=== PATIENT | female | born 1995 | race African-American/Black ===

== ENCOUNTER 2023-02-08 05:59 | Emergency (ER) | payer OTHER ==
--- OUTSIDE RECORDS SUMMARY | 2023-02-08 06:06 | XMS REPORT | Continuity of Care Document ---
:1995 Author Organization [facility] t Address [address] [place] [address] Care Team Providers Name Role Phone SHAWN JIM Patrick Primary Care Physician Unavailable ISA GAINES Attending Clinician Unavailable LEONORA RAE Attending Clinician Unavailable Vidya Burris MD Attending Clinician Leonora Rae MD Attending Clinician Doctor Unassigned, [place] Attending Clinician Unavailable LANE NAVA Attending Clinician Unavailable LANE NAVA Attending Clinician Unavailable Bibi Ramos MA Attending Clinician Unavailable Jose Fernandez CRNA Attending Clinician Derek Dominguez MD Attending Clinician Only, Adc Test Attending Clinician Unavailable 2, Adc Lab Attending Clinician Unavailable Chapis Chung MD Attending Clinician DUC GOLDMAN Attending Clinician Unavailable 1, Pea-m Us Room Attending Clinician Unavailable Duc Goldman MD Attending Clinician [phone] Pob, Adc Lab Main Attending Clinician Unavailable Gin Núñez RN Attending Clinician Unavailable Tyler Wright MD Attending Clinician TYLER WRIGHT Attending Clinician Unavailable SEAMUS GARCES Attending Clinician Unavailable Tyler Wallace MD Attending Clinician DELIA FIELD Attending Clinician Unavailable Carol Aguilar Attending Clinician Unavailable Carol Aguilar Attending Clinician Unavailable LEONORA RAE Admitting Clinician Unavailable TYLER WALLACE Admitting Clinician Unavailable Isa Gaines Admitting Clinician Unavailable Leonora Rae MD Admitting Clinician TYLER WRIGHT Admitting Clinician Unavailable Tyler Wallace MD Admitting Clinician DELIA FIELD Admitting Clinician Unavailable Carol Aguilar Admitting Clinician Unavailable Payers Payer Name Policy Type Policy Number Effective Date Expiration Date S rajwinder [facility] [id number] 2018 00:00:00 [place] [id number] 2022 00:00:00 [facility] [id number] 2018 00:00:00 Problems Condition Condition Condition Status Onset Resolution Last Treating Co mments Source Name Details Category Date Date Treatment Clinician Date Liveborn Liveborn Disease Active Unive rs infant, of infant, of 9-22 it y of bang[place] bangura 00:00: [place] , , 00 Me dical born in born in [facility] by vaginal by vaginal delivery delivery Encounter Encounter Disease Active Uni vers for for 9-22 ity of elective elective 00:00: [place] induction induction 00 [facility] of labor of labor [place] Poor Poor Disease Active Univers weight weight 7-22 ity of gain of gain of 00:00: [place] , , 00 Me dical third third [place] trimester trimester High-risk High-risk Disease Active Uni vers 5-27 ity of in second in second 00:00: [place] trimester trimester 00 [facility] 22 weeks 22 weeks Disease Active Unive rs gestation gestation 5-27 ity of of of 00:00: [place] 00 [facility] History of History of Disease Active U nivers pre-eclamp pre-eclamp 5-27 it y of shannan in shannan in 00:00: [place] prior prior 00 Medical , , Br anch currently currently , , second second trimester trimester Anemia of Anemia of Disease Active Uni vers mother in mother in 5-27 ity of , , 00:00[place] antepartum antepartum 00 Me dical Branch 39 weeks 39 weeks Disease Active Unive rs gestation gestation 5-27 ity of of of 00:00: [place] 00 [facility] Branch Anemia of Anemia of Disease Recurre Un [place]ena mother in mother in nce 5-27 ity of , , [place] delivered 00 [facility] with with Branch condition condition Obesity Obesity Disease Active Univers (BMI (BMI 1-19 ity of 30-39.9) 30-39.9) 00:00: [place] 00 Medical Branch Disease [facility] 00:[facility]: Medical delivered delivered [facility] Cent er Cardiac Cardiac Disease Active [facility] murmur[facility] previously previously 00:00: Me dical undiagnose undiagnose 00 Ce nter d d ASCUS ASCUS Disease Active [facility] (atypical (atypical 12-03 [facility] squamous squamous 00:00: Medica l cells of cells of 00 Center undetermin undetermin ed ed significan significan ce) on Pap ce) on Pap smear smear Allergies, Adverse Reactions, Alerts Allergy Allergy Status Severity Reaction(s) Onset Inactive Treating Comm ents Source Name Type Date Date Clinician No Known Drug Active [facility] NO KNOWN Drug Active [facility] Family History Family Member Diagnosis Comments Start Date Stop Date Source Natural brother Unremarkable [facility] Natural brother Seizures [facility] Natural father Heart attack [facility] Natural mother Unremarkable [facility] Social History Social Habit Start Date Stop Date Quantity Comments Source ASSERTION 2021-06-13 University of 00:00:00 [facility] Gender identity Universit y of [facility] Sexual orientation Univer sity of [facility] History SDOH University o f Alcohol Frequency [facility] History SDOH University o f Alcohol Std Drinks [facility] History SDOH University o f Alcohol Binge [place] [facility] Exposure to 2022-09-29 2022-10-09 Not sure [facility] SARS-CoV-2 (event) 00:00:00 09:48:00 [facility] Tobacco use and 2022-02-08 2022-02-08 Smokeless tobacco Un iversity of exposure 00:00:00 00:00:00 non-user [facility] History of Social 2021-06-27 2021-06-27 Univers ity of function 00:00:00 00:00:00 [facility] Alcohol intake 2019-12-01 2019-12-[address] [facility] 00:00:00 00:00:00 non-drinker of Medical Ce nter alcohol (finding) Alcohol Comment 2018-06-23 2018-06-23 occasional Universit y of 00:00:00 00:00:00 [facility] Sex Assigned At [address] [facility] 00:00:00 00:00:00 [facility] Center Smoking Status Start Date Stop Date Source Never smoked tobacco [facility] Medications Ordered Filled Start Stop Current Ordering Indication Dosage Frequency Signature Comments Components Source Medication Medication Date Date Medication? Clinician (SIG) Name Name metroNIDAZO Yes [id number] 500mg Take 1 Univers LE (FLAGYL) 5-05 tablet by ity of 500 mg 00:00: mouth [place] tablet 00 every 12 Medical (twelve) Branch hours. fluconazole Yes [id number] 150mg Take 1.5 Univers (DIFLUCAN) 5-05 tablets by ity of 100 mg 00:00: mouth in [place] tablet 00 the Medical morning. Branch metroNIDAZO Yes [id number] 500mg Take 1 Univers LE (FLAGYL) 5-05 tablet by ity of 500 mg 00:00: mouth [place] tablet 00 every 12 Medical (twelve) Branch hours. FLUCONAZOLE Yes [id number] 150mg TAKE 1.5 Univers 100 mg 5-05 TABLETS BY ity of tablet 00:00: MOUTH IN [place] 00 THE Medical MORNING Branch metroNIDAZO Yes [id number] 500mg Take 1 Univers LE (FLAGYL) 5-05 tablet by ity of 500 mg 00:00: mouth [place] tablet 00 every 12 Medical (twelve) Branch hours. FLUCONAZOLE 2022-0 Yes [id number] 150mg TAKE 1.5 Univers 100 mg 5-05 TABLETS BY ity of tablet 00:00: MOUTH IN [place] 00 THE Medical MORNING Branch fluconazole 2022-0 2022- No [id number] 150mg Take 1.5 Univers (DIFLUCAN) 5-05 05-05 tablets by it y of 100 mg 00:00: 00:00 mouth in [place] tablet 00 :00 the Medical morning. Branch metroNIDAZO 2022-0 Yes [id number] 500mg Take 1 Univers LE 500 mg 5-03 tablet by ity o f tablet 00:00: mouth [place] 00 every 12 Medical (twelve) Branch hours. metroNIDAZO 2022-0 Yes [id number] 500mg Take 1 Univers LE 500 mg 5-03 tablet by ity o f tablet 00:00: mouth [place] 00 every 12 Medical (twelve) Branch hours. metroNIDAZO 2022-0 Yes [id number] 500mg Take 1 Univers LE 500 mg 5-03 tablet by ity o f tablet 00:00: mouth [place] 00 every 12 Medical (twelve) Branch hours. metroNIDAZO 2022-0 Yes [id number] 500mg Take 1 Univers LE 500 mg 5-03 tablet by ity o f tablet 00:00: mouth [place] 00 every 12 Medical (twelve) Branch hours. metroNIDAZO 2022-0 Yes [id number] 500mg Take 1 Univers LE 500 mg 5-03 tablet by ity o f tablet 00:00: mouth [place] 00 every 12 Medical (twelve) Branch hours. metroNIDAZO 2022-0 Yes [id number] 500mg Take 1 Univers LE 500 mg 5-03 tablet by ity o f tablet 00:00: mouth [place] 00 every 12 Medical (twelve) Branch hours. aspirin 81 2021-06- No 81mg Take 81 mg Univers mg EC 1-11 11-11 by mouth ity of tablet 14:08: 00:00 daily. [place] 51 :00 Medical Branch norgestimat 2021-06 Yes [id number] 1{tbl} Take 1 Univers e-ethinyl 1-11 tablet by ity o f estradioL 00:00: [place] 0.25-35 00 the Medical mg-mcg per morning. Branc h tablet norgestimat 2021-06 Yes [id number] 1{tbl} Take 1 Univers e-ethinyl 1-11 tablet by ity o f estradioL 00:00: [place] 0.25-35 00 the Medical mg-mcg per morning. Branc h tablet norgestimat 2021-06 Yes [id number] 1{tbl} Take 1 Univers e-ethinyl 1-11 tablet by ity o f estradioL 00:00: mouth [place] 0.25-35 00 the Medical mg-mcg per morning. Branc h tablet norgestimat 2021-06 Yes [id number] 1{tbl} Take 1 Univers e-ethinyl 1-11 tablet by ity o f estradioL 00:00: [place] 0.25-35 00 the Medical mg-mcg per morning. Branc h tablet norgestimat 2021-06 Yes [id number] 1{tbl} Take 1 Univers e-ethinyl 1-11 tablet by ity o f estradioL 00:00: [place] 0.25-35 00 the Medical mg-mcg per morning. Branc h tablet norgestimat 2021-06 Yes [id number] 1{tbl} Take 1 Univers e-ethinyl 1-11 tablet by ity o f estradioL 00:00: mouth [place] 0.25-35 00 the Medical mg-mcg per morning. Branc h tablet norgestimat 2021-06 Yes [id number] 1{tbl} Take 1 Univers e-ethinyl 1-11 tablet by ity o f estradioL 00:00: mouth [place] 0.25-35 00 the Medical mg-mcg per morning. Branc h tablet norgestimat 2021-06 Yes [id number] 1{tbl} Take 1 Univers e-ethinyl 1-11 tablet by ity o f estradioL 00:00: mouth [place] 0.25-35 00 the Medical mg-mcg per morning. Branc h tablet norgestimat 2021-06 Yes [id number] 1{tbl} Take 1 Univers e-ethinyl 1-11 tablet by ity o f estradioL 00:00: mouth [place] 0.25-35 00 the Medical mg-mcg per morning. Branc h tablet norgestimat 2021-06 Yes [id number] 1{tbl} Take 1 Univers e-ethinyl 1-11 tablet by ity o f estradioL 00:00: mouth [place] 0.25-35 00 the Medical mg-mcg per morning. Branc h tablet norgestimat 2021-06 Yes [id number] 1{tbl} Take 1 Univers e-ethinyl 1-11 tablet by ity o f estradioL 00:00: mouth [place] 0.25-35 00 the Medical mg-mcg per morning. Branc h tablet norgestimat 2021-06 Yes [id number] 1{tbl} Take 1 Univers e-ethinyl 1-11 tablet by ity o f estradioL 00:00: [place] 0.25-35 00 the Medical mg-mcg per morning. Branc h tablet aspirin 81 Yes 81mg Take 81 mg U nivers mg EC 9-23 by mouth ity of tablet 16:40: daily. [place] [address] Medical Branch Yes [id number] 1{tbl} Take 1 Univers vitamin 9-23 102 tablet by ity of w/FA tablet 00:00: mouth in [place] 00 the Medical morning. Branch docusate Yes [id number] 200mg Take 2 Univers 100 mg 9-23 102 capsules ity of capsule 00:00: by mouth [place] 00 once daily Medical as needed Branch for Constipati on. ferrous Yes [id number] 325mg Take 1 Uni vers sulfate 325 9-23 tablet by ity of mg (65 mg 00:00: [place] iron) 00 the Medical tablet morning Branch and 1 tablet in the evening. ibuprofen Yes [id number] 600mg Take 1 Univers 600 mg 9-23 102 tablet by ity of tablet 00:00: mouth [place] 00 every 6 Medical (six) Branch hours as needed (Pain). Take with food or milk. Yes [id number] 1{tbl} Take 1 Univers vitamin 9-23 102 tablet by ity of w/FA tablet 00:00: mouth in [place] 00 the Medical morning. Branch ibuprofen Yes [id number] 600mg Take 1 Univers 600 mg 9-23 102 tablet by ity of tablet 00:00: mouth [place] 00 every 6 Medical (six) Branch hours as needed (Pain). Take with food or milk. 2021-0 Yes [id number] 1{tbl} Take 1 Univers vitamin 9-23 102 tablet by ity of w/FA tablet 00:00: mouth in [place] 00 the Medical morning. Branch ibuprofen 2021-0 Yes [id number] 600mg Take 1 Univers 600 mg 9-23 102 tablet by ity of tablet 00:00: mouth [place] 00 every 6 Medical (six) Branch hours as needed (Pain). Take with food or milk. 2021-0 Yes [id number] 1{tbl} Take 1 Univers vitamin 9-23 102 tablet by ity of w/FA tablet 00:00: mouth in [place] 00 the Medical morning. Branch ibuprofen 2021-0 Yes [id number] 600mg Take 1 Univers 600 mg 9-23 102 tablet by ity of tablet 00:00: mouth [place] 00 every 6 Medical (six) Branch hours as needed (Pain). Take with food or milk. 2021-0 Yes [id number] 1{tbl} Take 1 Univers vitamin 9-23 102 tablet by ity of w/FA tablet 00:00: mouth in [place] 00 the Medical morning. Branch ibuprofen 2021-0 Yes [id number] 600mg Take 1 Univers 600 mg 9-23 102 tablet by ity of tablet 00:00: mouth [place] 00 every 6 Medical (six) Branch hours as needed (Pain). Take with food or milk. 2021-0 Yes [id number] 1{tbl} Take 1 Univers vitamin 9-23 102 tablet by ity of w/FA tablet 00:00: mouth in [place] 00 the Medical morning. Branch ibuprofen 2021-0 Yes [id number] 600mg Take 1 Univers 600 mg 9-23 102 tablet by ity of tablet 00:00: mouth [place] 00 every 6 Medical (six) Branch hours as needed (Pain). Take with food or milk. 2021-0 Yes [id number] 1{tbl} Take 1 Univers vitamin 9-23 102 tablet by ity of w/FA tablet 00:00: mouth in [place] 00 the Medical morning. Branch ibuprofen 2021-0 Yes [id number] 600mg Take 1 Univers 600 mg 9-23 102 tablet by ity of tablet 00:00: mouth [place] 00 every 6 Medical (six) Branch hours as needed (Pain). Take with food or milk. ibuprofen 2022- No [id number] 600mg Take 1 Univers 600 mg 9- 05-03 102 tablet by ity of tablet 00:00: 00:00 mouth [place] 00 :00 every 6 Medical (six) Branch hours as needed (Pain). Take with food or milk. 2022- No [id number] 1{tbl} Take 1 Univers vitamin 9- 05-03 102 tablet by ity of w/FA tablet 00:00: 00:00 mouth in [place] 00 :00 the Medical morning. Branch ibuprofen 2022- No [id number] 600mg Take 1 Univers 600 mg - 05- 102 tablet by ity of tablet 00:00: 00:00 mouth [place] 00 :00 every 6 Medical (six) Branch hours as needed (Pain). Take with food or milk. 2022- No [id number] 1{tbl} Take 1 Univers vitamin - 05- 102 tablet by ity of w/FA tablet 00:00: 00:00 mouth in [place] 00 :00 the Medical morning. Branch ibuprofen 2022- No [id number] 600mg Take 1 Univers 600 mg - 05- 102 tablet by ity of tablet 00:00: 00:00 mouth [place] 00 :00 every 6 Medical (six) Branch hours as needed (Pain). Take with food or milk. 2022- No [id number] 1{tbl} Take 1 Univers vitamin -29 10- 102 tablet by ity of w/FA tablet 00:00: 00:00 mouth in [place] 00 :00 the Medical morning. Branch docusate 2021- No [id number] 200mg Take 2 Univers 100 mg 03-01- 102 capsules ity of capsule 00:00: 00:00 by mouth [place] 00 :00 once daily Medical as needed Branch for Constipati on. ferrous 2021- No [id number] 325mg Take 1 Un celena sulfate 325 03-01-11 tablet by it y of mg (65 mg 00:00: 00:00 mouth in [place] iron) 00 :00 the Medical tablet morning Branch and 1 tablet in the evening. HYDROcodone 202-0 Yes 1{tbl} 1 tablet, Univers -acetaminop 02-28 Oral, ity of hen (NORCO 18:32: Q6HPRN, [place] 5) 5-325 mg 49 Starting Medi aneudy tablet 1 on [facility] Branch tablet 02/28/22 at 1332, Until Discontinu ed, Routine, Pain (scale 7-10) ibuprofen 202-0 Yes 600mg 600 mg, Univ ers (IBU) 02-28 Oral, ity of tablet 600 18:32: Q6HPRN, [place] mg 49 Starting Medical on [place] Branch 02/28/22 at 1332, Until Discontinu ed, Routine, Pain (scale 4-6) acetaminoph 2021-0 Yes 650mg 650 mg, Un celena en 02-28 Oral, ity of (TYLENOL) 18:32: Q6HPRN, [place] tablet 650 49 Starting Medic al mg on [facility] Branch 02/28/22 at 1332, Until Discontinu ed, Routine, Pain (scale 1-3) diphenhydrA 2021-0 Yes 25mg 25 mg, Univ ers MINE 02-28 Oral, ity of (BENADRYL) 18:32: Q6HPRN, [place] tablet 25 49 Starting Medica l mg on [facility] Branch 02/28/22 at 1332, Until Discontinu ed, Routine, Sleep, Itching ondansetron 2021-0 Yes 4mg 4 mg, Slow Univers (ZOFRAN 02-28 IV Push, ity of (PF)) 18:32: Q8HPRN, [place] injection 4 49 Starting Medi aneudy mg on [facility] Branch 02/28/22 at 1332, Until Discontinu ed, Routine, Nausea and Vomiting (N/V) simethicone 2022-0 Yes 160mg 160 mg, Un [place]ena (GAS RELIEF 02-28 Oral, ity of (SIMETHICON 18:32: PC+HSPRN, [place] E)) 49 Starting Medical chewable on [facility] Branch tablet 160 02/28/22 at mg 1332, Until Discontinu ed, Routine, Gas docusate 2021-0 Yes 200mg 200 mg, Unive rs (COLACE) 02-28 Oral, ity of capsule 200 18:32: QDAILYPRN, [place] mg 49 Starting Medical on [place] Branch 02/28/22 at 1332, Until Discontinu ed, Routine, Constipati on magnesium Yes 30mL 30 mL, Univer s hydroxide 02-28 Oral, ity of (MILK OF 18:32: QDAILYPRN, [place] as MAGNESIA) 49 Starting Medica l 400 mg/5 mL on [place] Branch suspension 02/28/22 at 30 mL 1332, Until Discontinu ed, Routine, Constipati on benzocaine- Yes Topical, Un cel[place] menthol 02-28 PRN, ity of (DERMOPLAST 18:32: Starting [place] ) 20-0.5 % 49 on [place] Medical topical 02/28/22 at Branch spray 1332, Until Discontinu ed, Routine, Perineum discomfort PIB 2021- No Epidural, Univers fentaNYL-ro 02-28 CONTINUOUS i ty of pivacaine 2 14:27: 19:54 PRN, [place] mcg/mL-0.1 00 :19 Starting Medic al % (PF) in on [place] Branch NS 200 mL 02/28/22 at epidural 0927, infusion Until [place] RTU 02/28/22 at 1454, Routine, Intra-op lidocaine-e 2021- No Epidural, Univers pinephrine 02-28 ONCE INTRA it y of (XYLOCAINE 14:22: 19:54 PROCEDURE, [place] W/EPINEPHRI 00 :19 Starting Medi aneudy NE) 1.5 on [place] Branch %-1:200,000 02/28/22 at injection 0922, Until [place] 02/28/22 at 1454, Routine, Intra-op lidocaine 2021- No Infiltrati U nivers 1% 02-28 on, ONCE ity of (XYLOCAINE) 14:06: 19:54 INTRA [place] 100 mg/10 00 :19 PROCEDURE, Medi aneudy mL (1 %) Starting Branch injection on [place] 02/28/22 at 0906, Until [place] 02/28/22 at 1454, Routine, Intra-op oxytocin 2021- No 2mU/min at 2-40 Un celena (PITOCIN) 02-28 mL/hr, IV ity of 30 units in 08:48: 18:33 Infusion, [place] NS 500 mL 26 :54 TITRATE, Medica l IV infusion Starting Bran ch on [place] 02/28/22 at 0348, Until [place] 02/28/22 at 1333, ROBERT sodium 2021- No 30mL 30 mL, Univers citrate-cit 02-28 Oral, ity of alfred acid 08:48: 12:19 PRE-PROCED [place] (BICITRA) 26 :00 URE ONCE, Medic al 500-334 1 dose, Branch mg/5 mL Starting solution 30 on [place] mL 02/28/22 at 0348, Until Discontinu ed, Routine, Surgery/Pr ocedure lactated 2021- No 500mL at 999 Unive rs ringers IV 02-28 mL/hr, 500 it y of infusion 08:48: 18:33 mL, IV [place] 500 mL 26 :54 Infusion, Medical PRN - SEE Branch INSTRUCTIO NS, Starting on [place] 02/28/22 at 0348, Until [place] 02/28/22 at 1333, Routine D5W-LR IV 2021- No 1000mL at 1-125 U nivers infusion 02-28 mL/hr, IV ity o f 1,000 mL 08:48: 18:33 Infusion, [place] as 26 :54 TITRATE, Medical Starting Branch on [place] 02/28/22 at 0348, Until [place] 02/28/22 at 1333, Routine aspirin 81 2021-0 Yes 81mg Take 81 mg U nivers mg EC -22 by mouth ity of tablet 03:46: daily. [address] aspirin 81 2021-0 Yes 81mg Take 81 mg U nivers mg EC 9-16 by mouth ity of tablet 14:00: daily. [address] aspirin 81 2021-0 Yes 81mg Take 81 mg U nivers mg EC 9-16 by mouth ity of tablet 14:00: daily. [address] aspirin 81 2021-0 Yes 81mg Take 81 mg U nivers mg EC 9-16 by mouth ity of tablet 14:00: daily. [address] aspirin 81 2021-0 Yes 81mg Take 81 mg U nivers mg EC 9-16 by mouth ity of tablet 14:00: daily. [place] 53 Medical Branch butalbital- Yes [id number] 1{tbl} Take 1 Univers acetaminoph 3-16 tablet by ity of en-caff 00:00: mouth [place] 50-325-40 00 every 4 Medical mg tablet (four) Branch hours as needed (Headaches ). butalbital- Yes [id number] 1{tbl} Take 1 Univers acetaminoph 3-16 tablet by ity of en-caff 00:00: mouth [place] 50-325-40 00 every 4 Medical mg tablet (four) Branch hours as needed (Headaches ). butalbital- Yes [id number] 1{tbl} Take 1 Univers acetaminoph 3-16 tablet by ity of en-caff 00:00: mouth [place] 50-325-40 00 every 4 Medical mg tablet (four) Branch hours as needed (Headaches ). butalbital- Yes [id number] 1{tbl} Take 1 Univers acetaminoph 3-16 tablet by ity of en-caff 00:00: mouth [place] 50-325-40 00 every 4 Medical mg tablet (four) Branch hours as needed (Headaches ). butalbital- Yes [id number] 1{tbl} Take 1 Univers acetaminoph 3-16 tablet by ity of en-caff 00:00: mouth [place] 50-325-40 00 every 4 Medical mg tablet (four) Branch hours as needed (Headaches ). butalbital- 2021- No [id number] 1{tbl} Take 1 Univers acetaminoph 3-16 09-23 tablet by it y of en-caff 00:00: 00:00 mouth [place] 50-325-40 00 :00 every 4 Medical mg tablet (four) Branch hours as needed (Headaches ). ferrous Yes [id number] 325mg Take 1 Un [place] sulfate 325 2-16 tablet by ity of mg (65 mg 00:00: mouth 2 [place] iron) 00 (two) Medical tablet times Branch daily. ascorbic Yes [id number] 500mg Take 1 U nivers acid, 2-16 tablet by ity of vitamin C, 00:00: mouth 2 [place] 500 mg 00 (two) Medical tablet times Branch daily. Take with iron supplement s ferrous Yes [id number] 325mg Take 1 Un [place] sulfate 325 2-16 tablet by ity of mg (65 mg 00:00: mouth 2 [place] iron) 00 (two) Medical tablet times Branch daily. ascorbic Yes [id number] 500mg Take 1 U nivers acid, 2-16 tablet by ity of vitamin C, 00:00: mouth 2 [place] 500 mg 00 (two) Medical tablet times Branch daily. Take with iron supplement s ferrous Yes [id number] 325mg Take 1 Un [place] sulfate 325 2-16 tablet by ity of mg (65 mg 00:00: mouth 2 [place] iron) 00 (two) Medical tablet times Branch daily. ascorbic Yes [id number] 500mg Take 1 U nivers acid, 2-16 tablet by ity of vitamin C, 00:00: mouth 2 [place] 500 mg 00 (two) Medical tablet times Branch daily. Take with iron supplement s ferrous Yes [id number] 325mg Take 1 Un [place] sulfate 325 2-16 tablet by ity of mg (65 mg 00:00: mouth 2 [place] iron) 00 (two) Medical tablet times Branch daily. ascorbic Yes [id number] 500mg Take 1 U nivers acid, 2-16 tablet by ity of vitamin C, 00:00: mouth 2 [place] 500 mg 00 (two) Medical tablet times Branch daily. Take with iron supplement s ferrous Yes [id number] 325mg Take 1 Un [place] sulfate 325 2-16 tablet by ity of mg (65 mg 00:00: mouth 2 [place] iron) 00 (two) Medical tablet times Branch daily. ascorbic Yes [id number] 500mg Take 1 U nivers acid, 2-16 tablet by ity of vitamin C, 00:00: mouth 2 [place] 500 mg 00 (two) Medical tablet times Branch daily. Take with iron supplement s ascorbic Yes [id number] 500mg Take 1 U nivers acid, 2-16 tablet by ity of vitamin C, 00:00: mouth 2 [place] 500 mg 00 (two) Medical tablet times Branch daily. Take with iron supplement s ascorbic 2022- No [id number] 500mg Take 1 Univers acid, 2-16 11-11 tablet by ity of vitamin C, 00:00: 00:00 mouth 2 [place] 500 mg 00 :00 (two) Medical tablet times Branch daily. Take with iron supplement s ferrous 2021- No [id number] 325mg Take 1 U nivers sulfate 325 07-25 tablet by it y of mg (65 mg 00:00: 00:00 mouth 2 [place] iron) 00 :00 (two) Medical tablet times Branch daily. Yes 1{tbl} Take 1 Unive rs no.75-iron- 1-19 tablet by ity of folate no1 00:00: mouth [place] 18 mg iron- 00 daily. Medica l 1 mg Tab Branch Yes 1{tbl} Take 1 Unive rs no.75-iron- 1-19 tablet by ity of folate no1 00:00: mouth [place] 18 mg iron- 00 daily. Medica l 1 mg Tab Branch Yes 1{tbl} Take 1 Unive rs no.75-iron- 1-19 tablet by ity of folate no1 00:00: mouth [place] 18 mg iron- 00 daily. Medica l 1 mg Tab Branch Yes 1{tbl} Take 1 Unive rs no.75-iron- 1-19 tablet by ity of folate no1 00:00: mouth [place] 18 mg iron- 00 daily. Medica l 1 mg Tab Branch Yes 1{tbl} Take 1 Unive rs no.75-iron- 1-19 tablet by ity of folate no1 00:00: mouth [place] 18 mg iron- 00 daily. Medica l 1 mg Tab Branch 2021- No 1{tbl} Take 1 Univ ers no.75-iron- 1-19 03-01 tablet by it y of folate no1 00:00: 00:00 mouth [place] 18 mg iron- 00 :00 daily. Medica l 1 mg Tab Branch 2018-06 Yes 1{tbl} QD Take 1 [facility] vitamin [facility]-28 tablet by [place] w/calcium-i 13:46: mouth Medic al domitila-folate 25 daily. Center ( PLUS) 27 mg iron- 1 mg Tab Immunizations Ordered Immunization Filled Immunization Date Status Commen ts Source Name Name Meningococcal 2013-12-03 Completed [facility] Polysaccharide 00:00:00 [place] [facility] (groups A, C, Y and Branc h W-135) conjugate vaccine (MCV4P) Meningococcal 2013-12-03 Completed [facility] Polysaccharide 00:00:00 [place] [facility] (groups A, C, Y and Branc h W-135) conjugate vaccine (MCV4P) Meningococcal 2013-12-03 Completed [facility] Polysaccharide 00:00:00 [place] [facility] (groups A, C, Y and Branc h W-135) conjugate vaccine (MCV4P) Meningococcal 2013-12-03 Completed [facility] Polysaccharide 00:00:00 [place] [facility] (groups A, C, Y and Branc h W-135) conjugate vaccine (MCV4P) Meningococcal 2013-12-03 Completed [facility] Polysaccharide 00:00:00 [place] [facility] (groups A, C, Y and Branc h W-135) conjugate vaccine (MCV4P) Meningococcal 2013-12-03 Completed [facility] Polysaccharide 00:00:00 [place] [facility] (groups A, C, Y and Branc h W-135) conjugate vaccine (MCV4P) Meningococcal 2013-12-03 Completed [facility] Polysaccharide 00:00:00 [place] [facility] (groups A, C, Y and Branc h W-135) conjugate vaccine (MCV4P) Meningococcal 2013-12-03 Completed [facility] Polysaccharide 00:00:00 [place] [facility] (groups A, C, Y and Branc h W-135) conjugate vaccine (MCV4P) Meningococcal 2013-12-03 Completed [facility] Polysaccharide 00:00:00 [place] [facility] (groups A, C, Y and Branc h W-135) conjugate vaccine (MCV4P) Meningococcal 2013-12-03 Completed [facility] Polysaccharide 00:00:00 [place] [facility] (groups A, C, Y and Branc h W-135) conjugate vaccine (MCV4P) Meningococcal 2013-12-03 Completed [facility] Polysaccharide 00:00:00 [place] [facility] (groups A, C, Y and Branc h W-135) conjugate vaccine (MCV4P) Meningococcal 2013-12-03 Completed [facility] Polysaccharide 00:00:00 [place] [facility] (groups A, C, Y and Branc h W-135) conjugate vaccine (MCV4P) Meningococcal 2013-12-03 Completed [facility] Polysaccharide 00:00:00 [place] [facility] (groups A, C, Y and Branc h W-135) conjugate vaccine (MCV4P) Meningococcal 2013-12-03 Completed [facility] Polysaccharide 00:00:00 [place] [facility] (groups A, C, Y and Branc h W-135) conjugate vaccine (MCV4P) Meningococcal 2013-12-03 Completed [facility] Polysaccharide 00:00:00 [place] [facility] (groups A, C, Y and Branc h W-135) conjugate vaccine (MCV4P) Meningococcal 2013-12-03 Completed [facility] Polysaccharide 00:00:00 [place] [facility] (groups A, C, Y and Branc h W-135) conjugate vaccine (MCV4P) Meningococcal 2013-12-03 Completed [facility] Polysaccharide 00:00:00 [place] [facility] (groups A, C, Y and Branc h W-135) conjugate vaccine (MCV4P) Meningococcal 2013-12-03 Completed [facility] Polysaccharide 00:00:00 [place] [facility] (groups A, C, Y and Branc h W-135) conjugate vaccine (MCV4P) Meningococcal 2013-12-[address] [facility] Conjugate 00:00:00 [facility] Vital Signs Vital Name Observation Time Observation Value Comments Source Weight Dosing 2019-08-23 14:10:57 Height/Length 2019-08-23 14:10:57 Measured Weight Dosing 2019-08-23 13:10:45 Height/Length Dosing 2019-08-23 13:10:45 Height/Length 2021-06-26 09:38:19 170.18 cm Measured Height/Length Dosing 2021-06-26 09:38:19 170.18 cm Weight Dosing 2021-06-26 09:38:19 108.86 kg Height/Length 2021-06-26 09:37:14 170.18 cm Measured Height/Length Dosing 2021-06-26 09:37:14 170.18 cm Weight Dosing 2021-06-26 09:37:14 108.86 kg Height/Length 2021-06-26 09:36:06 170.18 cm Measured Height/Length Dosing 2021-06-26 09:36:06 170.18 cm Weight Dosing 2021-06-26 09:36:06 108.86 kg Height/Length 2021-06-26 09:36:03 170.18 cm Measured Height/Length Dosing 2021-06-26 09:36:03 170.18 cm Weight Dosing 2021-06-26 09:36:03 108.86 kg Height/Length 2021-06-26 09:36:02 170.18 cm Measured Height/Length Dosing 2021-06-26 09:36:02 170.18 cm Weight Dosing 2021-06-26 09:36:02 108.86 kg Height/Length 2021-06-26 09:35:53 170.18 cm Measured Height/Length Dosing 2021-06-26 09:35:53 170.18 cm Weight Dosing 2021-06-26 09:35:53 108.86 kg Height/Length 2021-06-26 09:35:50 170.18 cm Measured Height/Length Dosing 2021-06-26 09:35:50 170.18 cm Weight Dosing 2021-06-26 09:35:50 108.86 kg Height/Length 2021-06-26 09:35:39 170.18 cm Measured Height/Length Dosing 2021-06-26 09:35:39 170.18 cm Weight Dosing 2021-06-26 09:35:39 108.86 kg Height/Length 2021-06-26 09:35:37 170.18 cm Measured Height/Length Dosing 2021-06-26 09:35:37 170.18 cm Weight Dosing 2021-06-26 09:35:37 108.86 kg Systolic blood 2022-10-09 15:34:00 130 mm[Hg] Univer sity [facility] Diastolic blood 2022-10-09 15:34:00 83 mm[Hg] [facility] 2022-10-09 15:34:00 80 /min [facility] Body temperature 2022-10-09 15:34:00 36.72 Anjelica [facility] Res[facility] rate 2022-10-09 15:34:00 17 /min [facility] Body height 2022-10-09 15:34:00 170.2 cm [facility] Body weight 2022-10-09 15:34:00 96.435 kg [facility] BMI 2022-10-09 15:34:00 33.30 kg/m2 [facility] Systolic blood 2022-04-19 17:41:00 112 mm[Hg] Univer sity of pressure [facility] Diastolic blood 2022-04-19 17:41:00 66 mm[Hg] Unive rsity of pressure [facility] Heart rate 2022-04-19 17:41:00 61 /min [facility] [place] [facility] [place] Body temperature 2022-04-19 17:41:00 37.06 Anjelica Univ ersity of [facility] Body height 2022-04-19 17:41:00 170.2 cm Universi ty of [facility] Body weight 2022-04-19 17:41:00 89.359 kg Universi ty of [facility] BMI 2022-04-19 17:41:00 30.85 kg/m2 Universi ty of [facility] Respiratory rate 2022-03-01 17:46:00 18 /min Univ ersity of [facility] Systolic blood 2022-03-01 17:46:00 134 mm[Hg] Univer sity of pressure [facility] Diastolic blood 2022-03-01 17:46:00 76 mm[Hg] Unive rsity of pressure [facility] Heart rate 2022-03-01 17:46:00 62 /min [facility]i [facility] [place] Body temperature 2022-03-01 17:46:00 36.11 Anjelica [facility] ersity of [facility] Oxygen saturation in 2022-03-01 05:04:00 99 /min University of Arterial blood by [facility] Pulse oximetry Branch Body height 2022-02-28 08:50:00 170.2 cm 5' 7" Universi ty of [facility] Body weight 2022-02-28 08:50:00 99.066 kg Universi ty of [facility] BMI 2022-02-28 08:50:00 34.20 kg/m2 [facility]i [facility] Systolic blood 2022-02-22 15:37:00 129 mm[Hg] Univer sity of pressure [facility] Diastolic blood 2022-02-22 15:37:00 76 mm[Hg] Unive rsity of pressure [facility] Heart rate 2022-02-22 15:37:00 81 /min [facility]i [facility] Body temperature 2022-02-22 15:37:00 36.61 Anjelica Univ ersity of [facility] Respiratory rate 2022-02-22 15:37:00 18 /min [facility] Body height 2022-02-22 15:37:00 170.2 cm [facility] Body weight 2022-02-22 15:37:00 98.793 kg [facility] BMI 2022-02-22 15:37:00 34.11 kg/m2 [facility] Weight Dosing 2019-08-20 21:36:52 Height/Length 2019-08-20 21:36:52 Measured Height/Length 2021-06-26 09:33:38 170.18 cm Measured Weight Dosing 2021-06-26 09:33:38 104.32 kg Height/Length 2021-06-26 09:29:30 170.18 cm Measured Weight Dosing 2021-06-26 09:29:30 103.87 kg Weight Dosing 2019-08-17 10:44:02 Height/Length 2019-08-17 10:44:02 Measured Procedures Procedure Date / Time Performed Performing Clinician [facility] ASSIGNMENT OF BENEFITS 2022-10-09 14:50:12 Doctor Unassigned, No [facility] Name [facility] POCT URINALYSIS W/O 2022-10-09 00:00:00 Adum, Leonora Larsen [facility] SPECIFIC GRAVITY [facility] POCT TEST 2022-04-19 00:00:00 Adum, Leonora Larsen [facility] CBC WITH DIFF 2022-03-01 09:29:00 Adum, Leonora [facility]en [facility] CENTRAL NEURAXIAL 2022-02-28 14:42:27 Jose Fernandez [facility] BLOCK [facility] CBC WITH DIFF 2022-02-28 09:25:00 Adum, Leonora Larsen [facility] HEPATITIS B SURFACE 2022-02-28 09:25:00 Adum, Leonora Larsen [facility] ANTIGEN [facility] ADC OR SABINA ONLY - 2022-02-28 09:25:00 Adum, Leon[facility] RPR [facility] HIV 1/2 AG-AB WITH 2022-02-28 09:25:00 Adum, Leonora Larsen [facility] REFLEX [facility] HB ABO GROUPING 2022-02-28 09:20:00 Adum, Leonora Larsen [facility] ASSIGNMENT OF BENEFITS 2022-02-28 08:45:12 Doctor Unassigned, No [facility] ASSIGNMENT OF BENEFITS 2022-02-25 14:25:10 Doctor Unassigned, No [facility] POCT URINALYSIS W/O 2022-02-22 00:00:00 Adum, Lenoora Larsen [facility] SPECIFIC [facility] Encounters Start End Encounter Admission Attending Care Care Encounter Source Date/Time Date/Time Type Type Clinicians Facility Department ID 2022-02-25 Outpatient P [facility] [id number] Univers 09:29:24 ity [facility] 2022-01-28 Outpatient P [facility] [id number] [facility] 2021-04-05 [facility] P [facility] [id number] Univers 14:27:03 [facility] 2021-04-05 Outpatient P [facility] [id number] Univers 14:26:22 [facility] 2021-01-15 [facility] [id number] [place] 09:29:47 [facility] 2019-08-23 Inpatient [address] [facility] OBA [id number] [address] 12:58:00 [facility]20190823 [facility] 2019-08-23 Inpatient [address] [facility] OBA [id number] [address] 12:07:00 [facility] 2023-02-08 2023-02-08 Outpatient R [facility] [id number] Univers 10:40:00 10:40:00 [facility]23 2023 Refill [facility] 1.2.840.114 [id number] Univers 00:00:00 00:00:00 Vidya albright 350.1.13.10 ity [facility] 4.2.7.2.686 Devaughn albright PROFHIENIO [id number] [address] 2022-10-11 2022-10-11 Telephone [facility] 1.2.840.114 [id number] Univers 00:00:00 00:00:00 s, Vidya [place] 350.1.13.10 ity of [facility] [place] [id number] [address] 2022-10-11 2022-10-11 Refill Luis Armando [facility] 1.2.840.114 [id number] Univers 00:00:00 00:00:00 s, Vidya [place] 350.1.13.10 [place] of [place] [id number] [address] 2022-10-09 2022-10-09 [facility] [id number] Univers 10:15:00 11:01:56 LEONORA hess of [facility] 2022-10-09 2022-10-09 [facility] [id number] [facility] 10:15:00 11:01:56 Visit Leonora MAGANA 350.1.13.10 i ty of [place] [id number] [address] 2022-10-09 2022-10-09 Orders Doctor PORTER 1.2.840.114 [id number] Univers 00:00:00 00:00:00 Only Unassigned, JULIANA 350.1.13.10 ity of [place] [facility] 4.2.7.2.686 Emeterio as [id number] [address] 2022-09-30 2022-09-30 [facility] [id number] [id number] Univers 00:00:00 00:00:00 Leonora SALINAS 350.1.13.10 it[place] of [place] [id number] [address] 2022-09-30 2022-09-30 Telephone [facility] 1.2.613.802 [id number] Univers 00:00:00 00:00:00 Leonora L [place] 350.1.13.10 ity of [facility] 4.2.7.2.[place] [id number] [place] dical NAL [address] [place] [address] 2022-08-22 2022-08-[address] [facility] B [id number] Univers 09:00:00 09:00:00 [address] ity [facility] 2022-08-13 2022-08-13 Telephone Ad, [facility] [id number] [id number] Univers 00:00:00 00:00:00 Leonora SALINAS 350.1.13.10 ity of [facility] 4.2.7.2.[place] [id number] [place] dical NAL [address] [place] [address] 2022-07-23 2022-07-23 VANNESA [place] 1.2.840.114 [id number] Univers 00:00:00 00:00:00 Management Bibi THOMAS 350.1.13.10 ity of [place].7.2.[place] [id number] [address] 2022-04-19 2022-04-19 Outpatient R ADUM, [facility] [id number] Univers 11:15:00 12:13:48 LEONORA itbeth [facility] 2022-04-19 2022-04-19 Routine Adum, [facility] 1.2.840.114 [id number] Univers 11:15:00 12:13:48 Leonora SALINAS 350.1.13.10 ity of [place] 4.2.7.2.[place] [id number] [place] dical NAL [address] [place] [address] 2022-03-29 2022-03-29 Outpatient R ADUM, [facility] [id number] Univers 15:15:00 15:15:00 LEONORA hess [facility] 2022-03-29 2022-03-29 Outpatient R ADUM, [facility] [id number] Univers 09:45:00 09:45:00 LEONORA hess [facility] 2022-02-28 2022-03-01 Inpatient P ADUM, [facility] [id number] Univers 03:45:00 16:05:00 LEONORA ity [facility] 2022-02-28 2022-03-01 Hospital Butch, [facility] 1.2.840.114 [id number] Univers 03:45:00 16:05:00 Encounter Leonora SALINAS 350.1.13.10 ity of [facility] 4.2.7.2.686 [facility] [id number] [facility] 083 Branch 2022-02-28 2022-02-28 Anesthesia ElijahJose bui [facility] 1.2.8 40.114 [id number] Univers 09:05:00 14:54:00 Event DominguezDerek albright 350.1.13. 10 ity of [facility] 4.2.7.2.686 [facility] [id number] [facility] 083 Branch 2022-02-28 2022-02-28 Orders Doctor PORTER 1.2.840.114 [id number] Univers 00:00:00 00:00:00 Only Unassigned, JULIANA 350.1.13.10 ity of [place] [facility] 4.2.7.2.686 Emeterio [id number] [facility] 009 Branch 2022-02-26 2022-02-26 Outpatient R [facility] [id number] Univers 08:45:00 08:45:00 ity of [facility] 2022-02-25 2022-02-25 Laboratory Only, Adc Test [facility] 1.2.840. 114 [id number] Univers 13:45:00 14:00:00 Only Leonora Rae Chava SALINAS 350.1.13.10 ity of [facility] 4.2.7.2.686 [facility] [id number] [facility] 353 Branch 2022-02-25 2022-02-25 Outpatient R BUTCH, [facility] [id number] Univers 13:45:00 13:45:00 LEONORA ity [facility] 2022-02-25 2022-02-25 Orders Doctor BUENROSTRO 1.2.840.114 [id number] Univers 00:00:00 00:00:00 Only Unassigned, JULIANA 350.1.13.10 ity of [place] [facility] 4.2.7.2.686 Emeterio as [id number] [address] 2022-02-22 2022-02-22 Outpatient R ADUM, [facility] [id number] Univers 10:30:00 11:24:28 LEONORA ity of [facility] 2022-02-22 2022-02-22 Routine Adum, [facility] 1.2.840.114 [id number] Univers 10:30:00 11:24:28 Leonora L [place] 350.1.13.10 ity of [place] 4.2.[place].2.[place] [id number] [place] d[place] [address] 2022-02-15 2022-02-15 Outpatient R ADUM, [facility] [id number] Univers 16:15:00 16:15:27 LEONORA ity [facility] 2022-02-15 2022-02-15 Routine Ad, [facility] 1.2.840.114 [id number] Univers 16:15:00 16:15:27 Leonora L [place] 350.1.13.10 ity of [place] 4.2.7.2.[place] [id number] [place] dic[address] 2022-02-08 2022-02-08 Outpatient R ADUM, [facility] [id number] Univers 15:45:00 16:04:43 LEONORA ity [facility] 2022-02-08 2022-02-08 Routine Ad, [facility] 1.2.840.114 [id number] Univers 15:45:00 16:04:43 Leonora L [place] 350.1.13.10 ity of [place] 4.2.7.2.[place] [id number] [place] dical [address] 2022-02-08 2022-02-08 Crew Dispatcher 2, Adc Lab [facility] 1.2.840.114 [id number] Univers 15:15:00 15:30:00 Visit Adum, Leonora L [place] 350.1.13.10 ity of [place] 4.2.7.2.686 [place] [id number] [place] dical NAL [address] [facility] 2022-02-06 2022-02-06 Telephone Adum, [facility] 1.2.949.494 [id number] Univers 00:00:00 00:00:00 Leonora Chava CAMEJOTON 350.1.13.10 ity of [place] 4.2.7.2.686 [place] [id number] [place] dical NAL 134 [facility] 2022-02-01 2022-02-01 Outpatient R AD, [facility] [id number] Univers 16:00:00 16:47:23 LEONORA ity [facility] 2022-02-01 2022-02-01 [facility]ine [facility] 1.2.840.114 [id number] Univers 16:00:00 16:47:23 Leonoradax SALINAS 350.1.13.10 ity of [place] 4.2.7.2.686 [place] [phone] [place] dical NAL [address] [facility] 2022-02-01 2022-02-01 Orders Doctor PORTER 1.2.840.114 [id number] Univers 00:00:00 00:00:00 Only Unassigned, JULIANA 350.1.13.10 ity of [place] [facility] 4.2.7.2.686 Emeterio as [id number] [facility] [address] [place] 2022-01-28 2022-01-28 Outpatient P AD, [facility] [id number] Univers 16:35:00 19:00:00 LEONORA ity [facility] 2022-01-28 2022-01-28 Hospital Ad, [facility] 1.2.840.114 [id number] Univers 16:35:00 19:00:00 Encounter Leonora CAMEJOTON 350.1.13.10 it[place] of [place].2.7.2.[place] [id number] [facility] [address] [place] 2022-01-28 2022-01-28 Telephone Chapis Chung [facility] 1.2.840.114 [id number] Univers 00:00:00 00:00:00 Cam RITA 350.1.13.10 i ty of [place] 4.2.7.2.[place] [id number] [place] dical [address] 2022-01-11 2022-01-11 Outpatient R ADUM, [facility] [id number] Univers 13:00:00 13:00:00 LEONORA ity [facility] 2021-12-28 2021-12-28 Outpatient R ADUM, [facility] [id number] Univers 11:00:00 11:56:18 LEONORA ity [facility] 2021-12-28 2021-12-28 Routine Adum, [facility] 1.2.840.114 [id number] Univers 11:00:00 11:56:18 Leonora L [place] 350.1.13.10 ity of [place] 4.2.7.2.[place] [id number] [place] dical NAL [address] [place] [address] 2021-12-06 2021-12-06 Telephone Adum, [facility] 1.2.505.015 [id number] Univers 00:00:00 00:00:00 Leonora L [place] 350.1.13.10 ity of [place] 4[place].2.[place] [id number] [address] 2021-12-06 2021-12-06 Orders Doctor PORTER 1.2.840.114 [id number] Univers 00:00:00 00:00:00 Only Unassigned, JULIANA 350.1.13.10 ity of [place] [facility] 4.2.7.2.686 Emeterio as [id number] [address] 2021-12-04 2021-12-04 Outpatient R ADUM, [facility] [id number] Univers 08:45:00 09:54:15 LEONORA ity [facility] 2021-12-04 2021-12-04 Routine Adum, [facility] 1.2.840.114 [id number] Univers 08:45:00 09:54:15 Leonora L [place] 350.1.13.10 ity of [place] 4[place]2.[place].2.[place] [id number] [place] dic[address] 2021-12-04 2021-12-04 Crew Dispatcher 2, Adc Lab [facility] 1.2.840.114 [id number] Univers 08:00:00 08:15:00 Visit Adum, Leonora Chava SALINAS 350.1.13.10 ity of [place] 4[place].2.[place] [id number] [facility] [address] [facility] 2021-12-04 2021-12-04 Outpatient R ADUM, [facility] [id number] Univers 08:00:00 08:00:00 LEONORA ity [facility] 2021-11-19 2021-11-19 Patient Adum, [facility] 1.2.840.114 [id number] Univers 00:00:00 00:00:00 Secure Msg Leonora Larsen RITA 350.1.13.10 ity of [place] 4[place]2.[place] [id number] [facility] 134 [facility] 2021-11-02 2021-11-02 Outpatient P JONES, [facility] [id number] Univers 13:30:00 14:11:37 CHASEY ity [facility] 2021-11-02 2021-11-02 Crew Dispatcher 1, [facility] 1.2. 840.114 [id number] Univers 13:30:00 14:11:37 Visit Duc Goldman Cuate FACE PAINTER 350.1. 13.10 ity of [facility] 4.2.7.2.686 Emeterio as MATERNAL [id number] [facility] ical & CHILD [address] [place] [address] 2021-11-02 2021-11-02 Routine Adum, [facility] 1.2.840.114 [id number] Univers 11:00:00 11:34:15 Leonora SALINAS 350.1.13.10 ity of [place] 4[place]2.[place] [id number] Ky dical [address] 2021-10-11 2021-10-11 Telephone Adum, [facility] 1.2.671.060 [id number] Univers 00:00:00 00:00:00 Leonora Chava SALINAS 350.1.13.10 ity of [facility] 4.2.7.2.[place] [id number] Ky dical NAL [address] [facility] 2021-10-05 2021-10-05 Crew Dispatcher Pj, Adc Lab Main [facility] 1.2.8 40.114 [id number] Univers 16:30:00 16:45:00 Visit Adum, Leonora SALINAS 350.1.13.10 ity of [place] 4[place].2.[place] [id number] Ky dical NAL [address] [facility] 2021-10-05 2021-10-05 Outpatient R AD, [facility] [id number] Univers 15:30:00 16:22:40 LEONORA ity of [facility] 2021-10-05 2021-10-05 Routine Adum, [facility] 1.2.840.114 [id number] Univers 15:30:00 16:22:40 Leonora SALINAS 350.1.13.10 ity of [place] 4[place].2.[place] [id number] Ky dical NAL [address] [facility] 2021-10-05 2021-10-05 Outpatient R AD, [facility] [id number] Univers 11:15:00 11:15:00 LEONORA ity of [facility] 2021-10-05 2021-10-05 Orders Doctor PORTER 1.2.840.114 [id number] Univers 00:00:00 00:00:00 Only Unassigned, JULIANA 350.1.13.10 ity of [place] [facility] 4.2.7.2.686 Emeterio as [id number] [address] 2021-09-14 2021-09-14 Telephone Adum, [facility] 1.2.921.338 [id number] Univers 00:00:00 00:00:00 Leonora Chava SALINAS 350.1.13.10 ity of [place] 4[place].2.[place] [id number] Ky dical NAL [address] [facility] 2021-09-10 2021-09-10 Patient Case, Gin [facility] 1.2.840.114 [id number] Univers 00:00:00 00:00:00 Secure Msg Celina MAGANA 350.1.13.10 ity [place] [facility] [id number] [address] 2021-09-10 2021-09-10 Telephone Adum, [facility] 1.2.995.567 [id number] Univers 00:00:00 00:00:00 Leonora SALINAS 350.1.13.10 [place] [phone] [address] 2021-09-05 2021-09-05 Outpatient R AD, [facility] [id number] Univers 11:15:00 11:55:05 LEONORA ity of [facility] 2021-09-05 2021-09-05 Routine Adum, [facility] 1.2.840.114 [id number] Univers 11:15:00 11:55:05 Leonora SALINAS 350.1.13.10 ity of [place] [phone] [place] dic[address] 2021-09-05 2021-09-05 Orders Doctor PORTER 1.2.840.114 [id number] Univers 00:00:00 00:00:00 Only Unassigned, JULIANA 350.1.13.10 ity of [place] [facility] 4.2.7.2.686 [place] as [phone] [address] 2021-08-30 2021-08-30 Telephone Adum, [facility] 1.2.521.769 [id number] Univers 00:00:00 00:00:00 Leonora SALINAS 350.1.13.10 [place] [phone] [place] 2021-08-28 2021-08-28 Orders Doctor PORTER 1.2.840.114 [id number] Univers 00:00:00 00:00:00 Only Unassigned, JULIANA 350.1.13.10 [facility] 4.2.7.2.686 [place] [phone] [address] 2021-08-22 2021-08-22 Routine Adum, [facility] 1.2.840.114 [id number] Univers 13:00:00 13:36:39 Leonora Larsen [place] 350.1.13.10 ity of Visit [place] [phone] [place] [address] [place] [address] 2021-08-22 2021-08-22 Outpatient R AD, [facility] [id number] Univers 09:30:00 09:30:00 LEONORA ity [facility] 2021-08-22 2021-08-22 Letter [facility] [place] 1.2.840.114 [id number] Univers 00:00:00 00:00:00 (Out) Leonora L [place] 350.1.13.10 ity of [place] [phone] [place] [address] [place] [address] 2021-08-21 2021-08-21 Patient Adum, [facility] 1.2.840.114 [id number] Univers 00:00:00 00:00:00 Secure Msg Leonora L [place] 350.1.13.10 ity of [facility] [place] [phone] [place] N[place] [address] [place] [address] 2021-08-13 2021-08-13 Patient Ad, [facility] 1.2.840.114 [id number] Univers 00:00:00 00:00:00 Secure Msg Leonora L [place] 350.1.13.10 ity of [facility] [place] [phone] [place] N[place] [address] [place] [address] 2021-08-08 2021-08-08 Outpatient R ADUM, [facility] [id number] Univers 11:15:00 12:01:40 LEONORA ity [facility] 2021-08-08 2021-08-08 Routine Ad, [facility] 1.2.840.114 [id number] Univers 11:15:00 12:01:40 Leonora Larsen [place] 350.1.13.10 ity of Visit [facility] [place] [phone] [place] dical NAL [address] [facility] 2021-07-25 2021-07-25 Case Adum, [facility] 1.2.840.114 [id number] Univers 00:00:00 00:00:00 Management Leonora Larsen [place] 350.1.13.10 ity of [place] [phone] [place]ical NAL [address] [facility] 2021-07-24 2021-07-24 Patient Adum, [facility] 1.2.840.114 [id number] Univers 00:00:00 00:00:00 Secure Msg Leonora CAMEJOTON 350.1.13.10 ity of [facility] [place] [phone] [place] N[place] [address] [facility] 2021-07-20 2021-07-20 Outpatient R AD, [facility] [id number] Univers 11:15:00 11:15:00 LEONORA hess [facility] 2021-07-20 2021-07-20 Crew Dispatcher 2, Adc Lab [facility] 1.2.840.114 [id number] Univers 11:15:00 11:15:00 Visit Adum, Leonora SALINAS 350.1.13.10 ity of [facility] [place] [phone] [place] dical NAL [address] [facility] 2021-07-20 2021-07-20 Case Adum, [facility] 1.2.840.114 [id number] Univers 00:00:00 00:00:00 Management Leonora Larsen [place] 350.1.13.10 ity of [place] [phone] [place] dical NAL [address] [facility] 2021-07-19 2021-07-19 Outpatient R ADUM, [facility] [id number] Univers 10:45:00 10:45:00 LEONORA hess [facility] 2021-07-19 2021-07-19 Crew Dispatcher 2, Adc Lab [facility] 1.2.840.114 [id number] Univers 10:45:00 10:45:00 Visit Butch, Leonora SALINAS 350.1.13.10 ity of [facility] [place] [phone] [facility] [address] [facility] 2021-07-18 2021-07-18 [facility] SamuelSUNIL 1..840.114 [id number] Univers 11:54:00 23:59:00 Encounter Tyler Sepulveda 350.1.13.10 ity of [facility] 4.2.7.2.686 Emeter[place] as [phone] [address] 2021-07-18 2021-07-18 Outpatient Adam WRIGHT [facility] [id number] Univers 00:00:00 23:59:00 [facility] 2021-07-18 2021-07-18 Outpatient Adam WRIGHT [facility] [id number] Univers 00:00:00 00:00:00 [facility] 2021-07-12 2021-07-12 Outpatient R [facility] [id number] Univers [facility]:00[facility] 2021-07-12 Outpatient R [facility] [id number] Univers 10:00:00 [facility] 2021-07-12 2021-07-12 Case [facility] [place] 1.2.840.114 [id number] Univers 00:00:00 00:00:00 Management Leonora SALINAS 350.1.13.10 ity of [place] [phone] [facility] [address] [facility] 2021-07-12 2021-07-12 Telephone [facility] 1.2.406.626 [id number] Univers 00:00:00 00:00:00 Leonora SALINAS 350.1.13.10 ity of [place] [phone] [place] dical NAL [address] [facility] 2021-07-11 2021-07-11 Crew Dispatcher 2, Adc Lab [facility] 1.2.840.114 [id number] Univers 14:00:00 14:00:00 Visit AdumLeonora 350.1.13.10 ity of [facility] [place] [phone] Ky dic[address] 2021-07-11 2021-07-11 Outpatient R ADUM, [facility] [id number] Univers 11:15:00 13:51:17 LEONORA ity [facility] 2021-07-11 2021-07-11 Routine Ad, [facility] 1.2.840.114 [id number] Univers 11:15:00 13:51:17 Leonora Larsen R[place] 350.1.13.10 ity of [place] [phone] [place] dic[address] 2021-07-11 2021-07-11 Orders Doctor PORTER 1.2.840.114 [id number] Univers 00:00:00 00:00:00 Only Unassigned, JULIANA 350.1.13.10 ity of [place] [facility] 4.2.7.2.686 [place]eter[place] as [phone] [address] 2021-07-02 2021-07-02 Outpatient R AD, [facility] [id number] Univers 10:00:00 10:00:00 LEONORA ity [facility] 2021-07-02 2021-07-02 Crew Dispatcher 2, Adc Lab [facility] 1.2.840.114 [id number] Univers 10:00:00 10:00:00 Visit Adum, Leonora CAMEJOMARTHA 350.1.13.10 ity of [facility] 4[place] [phone] Ky dical [address] 2021-06-29 2021-06-29 Outpatient R ADUM, [facility] [id number] Univers 13:30:00 13:30:00 LEONORA ity [facility] 2021-06-292021-06-29 Crew Dispatcher 2, Adc Lab [facility] 1.2.840.114 [id number] Univers 13:30:00 13:30:00 Visit Leonora Rae R[place] 350.1.13.10 ity of [place] [phone] Ky dical [facility] [address] [facility] 2021-06-27 2021-06-27 Crew Dispatcher Pj, Adc Lab Main [facility] 1.2.8 40.114 [id number] Univers 11:45:00 12:00:00 Visit AdLeonora corrales 350.1.13.10 ity of [place] [phone] [facility] [address] [facility] 2021-06-27 2021-06-27 [facility] [id number] Univers 10:00:00 11:06:08 LEONORA hess [facility] 2021-06-27 2021-06-27 Initial [facility] 1.2.840.114 [id number] Univers 10:00:00 11:06:08 Leonora Chava [place] 350.1.13.10 ity of [place] [phone] [facility] [address] [facility] 2021-06-27 2021-06-27 [facility] [id number] Univers 10:00:00 11:06:08 LEONORADAX hess [facility] 2021-01-30 2021-01-30 Outpatient [facility] [id number] Univers 13:15:00 13:15:00 SEAMUSTRAV hess [facility] 2019-08-22 2019-08-23 [facility] 1.2.840.114 [id number] Univers 23:03:00 07:15:00 Encounter Tyler [place] 350.1.13.10 ity of [place] [phone] [facility] [address] [place] 2019-08-20 2019-08-20 Outpatient 3 Eder [facility] [id number] 20:59:00 20:59:00 [facility] -[id number] [facility] 2019-08-20 2019-08-20 Outpatient Eder [facility] [id number] 20:59:00 20:59:00 [facility] 2019-08-17 2019-08-17 Outpatient Eder [facility] [id number] 10:15:00 10:15:00 [facility] 2019-08-17 2019-08-17 Outpatient 3 Eder [facility] [id number] 10:15:00 10:15:00 [id number] [facility] 2019-04-22 2019-04-22 Outpatient 3 Carol Aguilar [facility] [id number] 09:39:00 23:59:[address] [facility] Results Test Description Test Time Test Comments Results Result Comments Source POCT URINALYSIS W/O SPECIFIC GRAVITY 2022-10-09 15:31:00 Test Item Value Reference Range Interpretation Comme nts POCT PH U (test code = 3254) 5 mg/dl 5-8 POCT U LEUK EST (test code = 3263) + Negative - Negative POCT U NIT (test code = 3262) negative Negative - Negative POCT U PROT (test code = 3259) negative Negative - Negative POCT U GLU (test code = 3256) negative Negative - Negative POCT U KETONE (test code = 3258) negative Negative - Negative POCT U BLD (test code = 3257) negative Negative - Negative [facility] [id number] 15:31:00 Test Item Value Reference Range Interpretation Comments POCT PH U (test code = 3254) 5 mg/dl 5-8 POCT U LEUK EST (test code = + Negative - Negative 3263) POCT U NIT (test code = 3262) negative Negative - Negative POCT U PROT (test code = 3259) negative Negative - Negative POCT U GLU (test code = 3256) negative Negative - Negative POCT U KETONE (test code = 3258) negative Negative - Negative POCT U BLD (test code = 3257) negative Negative - Negative [facility] W/O SPECIFIC [id number] 15:31:00 Test Item Value Reference Range Interpretation Comments POCT PH U (test code = 3254) 5 mg/dl 5-8 POCT U LEUK EST (test code = + Negative - Negative 3263) POCT U NIT (test code = 3262) negative Negative - Negative POCT U PROT (test code = 3259) negative Negative - Negative POCT U GLU (test code = 3256) negative Negative - Negative POCT U KETONE (test code = 3258) negative Negative - Negative POCT U BLD (test code = 3257) negative Negative - Negative [facility] [id number] 17:41:00 Test Item Value Reference Range Interpretation Comments POCT PREG (test code = 1605) Negative On board controls acceptable with C Yes Line (test code = 3574) POCT PREG LOT # (test code = 3575) POCT PREG TEST DATE (test code = 3576) [facility] [facility] - [id number] 08:50:44 Test Item Value Reference Range Interpretation Comments RPR (Qualitative) (test code = Nonreactive Nonreactive 40685-1) Lab Interpretation (test code = Normal 91362-1) [facility] HospitalHepatitis B Surface [id number] 16:15:00 Test Item Value Reference Range Interpretation Comments HBsAg Semi-Quantitative (test code = Negative Negative 5195-3) [facility] HospitalHIV 1/2 AG-AB WITH [id number] 13:50:53 Test Item Value Reference Range Interpretation Comments HIV Negative Negative Semi-quantitative (test code = 02934-2) NORIS (test code = Non-reactive for HIV-1 NORIS) antigen and HIV-1/HIV-2 antibodies. ?No laboratory evidence of HIV infection. ?Repeat in 2-4 weeks if acute HIV infection is suspected. [facility] HospitalType and Screen - ONCE [id number] 10:34:54 Test Item Value Reference Range Interpretation Comments ABO & RH (test code O Positive Performe d at [facility] = 20) Laboratory Serv [facility] Blood [facility]1 [address] [place] [phone] Free: [phone] A No. [id number] IAT (test code = Negative Performed a t [facility] 1185) Laboratory Serv [facility] Blood [facility]1 [address] [place] [phone] Free: [phone] A No. [id number] [facility] HospitalCBC with [id number] 10:11:56 Test Item Value Reference Range Interpretation Comments WBC (test code = See_Comment [Automated 6690-2) message] The sy stem which generated this result transmitted reference range : 4.30 - 11.10 10*3/?L. The reference range was not used to interpret this result as normal/abnormal . RBC (test code = See_Comment [Automated 789-8) message] The sy stem which generated this result transmitted reference range : 3.93 - 5.25 10*6/?L. The reference range was not used to interpret this result as normal/abnormal . HGB (test code = 9.1 g/dL 11.6-15 L 718-7) HCT (test code = 29.3 % 35.7-45.2 L 4544-3) MCV (test code = 72.9 fL 80.6-95.5 L 787-2) MCH (test code = 22.6 pg 25.9-32.8 L 785-6) MCHC (test code = 31.1 g/dL 31.6-35.1 L 786-4) RDW-SD (test code = 43.7 fL 39-49.9 16402-9) RDW-CV (test code = 16.8 % 12-15.5 H 788-0) PLT (test code = See_Comment L [Automated 777-3) message] The sy stem which generated this result transmitted reference range : 166 - 358 10*3/ ?L. The reference r carlo was not used to interpret this result as normal/abnormal . MPV (test code = 11.9 fL 9.5-12.9 05843-5) IPF % (test code = 10.8 % 1.3-7.7 H Platelet count [id number]) measured by fluorescence method. NRBC/100 WBC (test See_Comment [Automat ed code = [id number]) message] The system which generated this result transmitted reference range : 0.0 - 10.0 /100 WBCs. The refer ence range was not u sed to interpret th is result as normal/abnormal . NRBC x10^3 (test code See_Comment [Auto mated = [id number]) message] The s ystem which generated this result transmitted reference range : 10*3/?L. The reference range was not used to interpret this result as normal/abnormal . GRAN MAT (NEUT) % 71.9 % (test code = 770-8) IMM GRAN % (test code 0.40 % = 1188348839) LYMPH % (test code = 21.7 % 736-9) MONO % (test code = 5.1 % 5905-5) EOS % (test code = 0.5 % 713-8) BASO % (test code = 0.4 % 706-2) GRAN MAT x10^3(ANC) 5.59 10*3/uL 1.88-7.09 (test code = 4548926180) IMM GRAN x10^3 (test 0.03 10*3/uL 0-0.06 code = 3622025409) LYMPH x10^3 (test code 1.69 10*3/uL 1.32-3.29 = 731-0) MONO x10^3 (test code 0.40 10*3/uL 0.33-0.92 = 742-7) EOS x10^3 (test code = 0.04 10*3/uL 0.03-0.39 711-2) BASO x10^3 (test code 0.03 10*3/uL 0.01-0.07 = 704-7) Lab Interpretation Abnormal (test code = 75083-4) General acute hospital URINALYSIS W/O SPECIFIC [id number] 16:01:00 Test Item Value Reference Range Interpretation Comments POCT PH U (test code = 3254) n/a 5-8 POCT U LEUK EST (test code = n/a Negative - Negative 3263) POCT U NIT (test code = 3262) n/a Negative - Negative POCT U PROT (test code = 3259) trace Negative - Negative POCT U GLU (test code = 3256) Negative Negative - Negative POCT U KETONE (test code = 3258) n/a Negative - Negative POCT U BLD (test code = 3257) n/a Negative - Negative [facility] HospitalHemoglobin and [id number] 12:55:49 Test Item Value Reference Range Interpretation Comments Hgb (test code = Hgb) 8.6 g/dL 12.2-14.8 L Hct (test code = Hct) 28.7 % 36.5-44.4 L RPR [id number] 07:05:06 Test Item Value Reference Range Interpretation Comments RPR Qual (test code = RPR Qual) Non-Reactive Non-Reactive Reactive Control (test code = Reactive Reactive Control) Weak Reactive Control (test Weak Reactive code = Weak Reactive Control) Non-Reactive Control (test code Non-Reactive = Non-Reactive Control) Lot # (test code = Lot #) [id number] N Expiration Dt (test code = 06-08-2020 N Expiration Dt) Red Blood Cells [id number] 20:33:59 Test Item Value Reference Range Interpretation Comments # of Units (test code = 2 N # of Units) RBC Trn Reason (test High risk, even if N code = RBC Trn Reason) Hgb > 7 Spec Req 3 (test code = Other (Add Order N Spec Req 3) Comment) RBC Product Ready (test RBC Ready code = RBC Product Ready) [facility] [id number] 20:29:49 Test Item Value Reference Range Interpretation Comments Methodology (test code = Test-Tube(TT) Methodology) Anti-A (test code = Anti-A) 0 Anti-B (test code = Anti-B) 0 Anti-AB (test code = Anti-AB) NT Anti-D (test code = Anti-D) 3+ ABORh Retype (test code = ABORh O POS Retype) [facility] [id number] 16:10:42 Test Item Value Reference Range Interpretation Comments Methodology (test code = Test-Tube(TT) Methodology) Anti-A (test code = Anti-A) 0 Anti-B (test code = Anti-B) 0 Anti-AB (test code = Anti-AB) NT Anti-D (test code = Anti-D) 3+ ABORh Retype (test code = ABORh O POS Retype) 3C ABSC [id number] 15:29:42 Test Item Value Reference Range Interpretation Comments SC1 IS (test code = SC1 IS) NT SC2 IS (test code = SC2 IS) NT SC3 IS (test code = SC3 IS) NT SC1 37 (test code = SC1 37) 0 SC2 37 (test code = SC2 37) 0 SC3 37 (test code = SC3 37) 0 SC1 AHG (test code = SC1 AHG) 0 SC2 AHG (test code = SC2 AHG) 0 SC3 AHG (test code = SC3 AHG) 0 SC1 CC (test code = SC1 CC) 2+ SC2 CC (test code = SC2 CC) 2+ SC3 CC (test code = SC3 CC) 2+ Antibody Screen (3C) (test code Negative ABSC = Antibody Screen (3C)) Hepatitis B Surface [id number] 14:56:50 Test Item Value Reference Range Interpretation Comments Hep Bs Ag (test code = Hep Bs Ag) Nonreactive Non Reactive [id number] 14:49:47 Test Item Value Reference Range Interpretation Comments Previous History (test code = No Prev History Previous History) BBID (test code = BBID) [id number] Methodology (test code = Test-Tube(TT) Methodology) Anti-A (test code = Anti-A) 0 Anti-B (test code = Anti-B) 0 Anti-D (test code = Anti-D) 4+ DCon (test code = DCon) NT A1 (test code = A1) 4+ B cells (test code = B cells) 4+ ABORh (test code = ABORh) O POS Comprehensive Metabolic [id number] 14:46:32 Test Item Value Reference Range Interpretation Comments Sodium Level (test code = Sodium 136.0 mmol/L 135.0-145.0 Level) Potassium Level (test code = 4.2 mmol/L 3.5-5.1 Potassium Level) Chloride Level (test code = 102 mmol/L 98-105 Chloride Level) CO2 (test code = CO2) 21 mmol/L 22-29 L Anion Gap (test code = Anion 13 mmol/L 7-16 Gap) BUN (test code = BUN) 6.50 mg/dL 6.00-20.00 Creatinine Level (test code = 0.80 mg/dL 0.50-0.90 Creatinine Level) BUN/Creat Ratio (test code = 8 N BUN/Creat Ratio) Glucose Level (test code = 84 mg/dL 70-115 Glucose Level) Calcium Level (test code = 8.7 mg/dL 8.3-10.5 Calcium Level) Alk Phos (test code = Alk Phos) 136 U/L 35-104 H Bilirubin Total (test code = 0.4 mg/dL 0.1-0.9 Bilirubin Total) Albumin Level (test code = 3.0 g/dL 3.5-5.2 L Albumin Level) Protein Total (test code = 5.8 g/dL 6.4-8.3 L Protein Total) ALT (test code = ALT) 10 U/L 1-33 AST (test code = AST) 18 U/L 1-32 Globulin (test code = Globulin) 2.8 g/dL 2.9-3.1 L A/G Ratio (test code = A/G 1.1 ratio N Ratio) Comprehensive Metabolic [id number] 14:46:32 Test Item Value Reference Range Interpretation Comments Sodium Level (test 136.0 mmol/L 135.0-145.0 code = Sodium Level) Potassium Level 4.2 mmol/L 3.5-5.1 (test code = Potassium Level) Chloride Level (test 102 mmol/L 98-105 code = Chloride Level) CO2 (test code = 21 mmol/L 22-29 L CO2) Anion Gap (test code 13 mmol/L 7-16 = Anion Gap) BUN (test code = 6.50 mg/dL 6.00-20.00 BUN) Creatinine Level 0.80 mg/dL 0.50-0.90 (test code = Creatinine Level) BUN/Creat Ratio 8 N (test code = BUN/Creat Ratio) Glucose Level (test 84 mg/dL 70-115 code = Glucose Level) Calcium Level (test 8.7 mg/dL 8.3-10.5 code = Calcium Level) Alk Phos (test code 136 U/L 35-104 H = Alk Phos) Bilirubin Total 0.4 mg/dL 0.1-0.9 (test code = Bilirubin Total) Albumin Level (test 3.0 g/dL 3.5-5.2 L code = Albumin Level) Protein Total (test 5.8 g/dL 6.4-8.3 L code = Protein Total) ALT (test code = 10 U/L 1-33 ALT) AST (test code = 18 U/L 1-32 AST) Globulin (test code 2.8 g/dL 2.9-3.1 L = Globulin) A/G Ratio (test code 1.1 ratio N = A/G Ratio) eGFR AA (test code = >60 N eGFR (e stimated eGFR AA) mL/min/1.73 m2 Glomerular Filtration Rate ) is an estimated va lue, calculated from the patient's serum creatinine usin g the MDRD equation. It is NOT the patient 's actual GFR. The eGFR provides a more clinically usef ul measure of kidn ey disease than se rum creatinine alone.This calculation dano es sex and race in to account, if the information is provided. If th e race is not provided, and t he patient is -Amber n, multiply by 1.2 12. If sex is not provided, and t he patient is fema le, multiply by 0.7 42. Results for pat ients <18 years of ag e have not been validated by th e MDRD study and should be interpreted wit h caution. eGFR R esult Interpretation: eGFR > or = 60 is in the Normal RangeeGF R < 60 may mean kid yoni diseaseeGFR < 1 5 may mean kidney failure Rang es recommended by the National Kidney Foundation, http://nkdep.ni h.gov Comprehensive Metabolic [id number] 14:46:32 Test Item Value Reference Range Interpretation Comments Sodium Level (test 136.0 mmol/L 135.0-145.0 code = Sodium Level) Potassium Level 4.2 mmol/L 3.5-5.1 (test code = Potassium Level) Chloride Level (test 102 mmol/L 98-105 code = Chloride Level) CO2 (test code = 21 mmol/L 22-29 L CO2) Anion Gap (test code 13 mmol/L 7-16 = Anion Gap) BUN (test code = 6.50 mg/dL 6.00-20.00 BUN) Creatinine Level 0.80 mg/dL 0.50-0.90 (test code = Creatinine Level) BUN/Creat Ratio 8 N (test code = BUN/Creat Ratio) Glucose Level (test 84 mg/dL 70-115 code = Glucose Level) Calcium Level (test 8.7 mg/dL 8.3-10.5 code = Calcium Level) Alk Phos (test code 136 U/L 35-104 H = Alk Phos) Bilirubin Total 0.4 mg/dL 0.1-0.9 (test code = Bilirubin Total) Albumin Level (test 3.0 g/dL 3.5-5.2 L code = Albumin Level) Protein Total (test 5.8 g/dL 6.4-8.3 L code = Protein Total) ALT (test code = 10 U/L 1-33 ALT) AST (test code = 18 U/L 1-32 AST) Globulin (test code 2.8 g/dL 2.9-3.1 L = Globulin) A/G Ratio (test code 1.1 ratio N = A/G Ratio) eGFR AA (test code = >60 N eGFR (e stimated eGFR AA) mL/min/1.73 m2 Glomerular Filtration Rate ) is an estimated va lue, calculated from the patient's serum creatinine usin g the MDRD equation. It is NOT the patient 's actual GFR. The eGFR provides a more clinically usef ul measure of kidn ey disease than se rum creatinine alone.This calculation dano es sex and race in to account, if the information is provided. If th e race is not provided, and t he patient is -Amber n, multiply by 1.2 12. If sex is not provided, and t he patient is fema le, multiply by 0.7 42. Results for pat ients <18 years of ag e have not been validated by th e MDRD study and should be interpreted wit h caution. eGFR R esult Interpretation: eGFR > or = 60 is in the Normal RangeeGF R < 60 may mean kid yoni diseaseeGFR < 1 5 may mean kidney failure Rang es recommended by the National Kidney Foundation, http://nkdep.ni h.gov eGFR Non-AA (test >60.00 N eGFR (floresita mated code = eGFR Non-AA) mL/min/1.73 m2 Glomer ular Filtration Rate ) is an estimated va lue, calculated from the patient's serum creatinine usin g the MDRD equation. It is NOT the patient 's actual GFR. The eGFR provides a more clinically usef ul measure of kidn ey disease than se rum creatinine alone.This calculation dano es sex and race in to account, if the information is provided. If th e race is not provided, and t he patient is -Amber n, multiply by 1.2 12. If sex is not provided, and t he patient is fema le, multiply by 0.7 42. Results for pat ients <18 years of ag e have not been validated by th e MDRD study and should be interpreted wit h caution. eGFR R esult Interpretation: eGFR > or = 60 is in the Normal RangeeGF R < 60 may mean kid yoni diseaseeGFR < 1 5 may mean kidney failure Rang es recommended by the National Kidney Foundation, http://nkdep.ni h.gov Creatinine [id number] 14:38:04 Test Item Value Reference Range Interpretation Comments U Creatinine (test code = U 101.5 mg/dL 10.0-300.0 Creatinine) Protein [id number] 14:38:04 Test Item Value Reference Range Interpretation Comments U Protein (test code = U Protein) 9.8 mg/dL N Complete Blood Count with [id number] 14:26:42 Test Item Value Reference Range Interpretation Comments WBC (test code = WBC) 8.6 x10 4.4-10.5 RBC (test code = RBC) 3.58 x10 3.75-5.20 L Hgb (test code = Hgb) 8.4 g/dL 12.2-14.8 L MCV (test code = MCV) 77.10 fL 80.00-100.00 L Hct (test code = Hct) 27.6 % 36.5-44.4 L MCHC (test code = 30.40 g/dL 32.00-37.50 L MCHC) RDW CV (test code = 14.4 % 11.5-14.5 RDW CV) MCH (test code = MCH) 23.5 pg 27.0-32.5 L Platelets (test code = 151.0 x10 140.0-440.0 Platelets) MPV (test code = MPV) 11.7 fL N Slide Review (test Auto Auto Result cr eated by code = Slide Review) GL_SJM_ SLIDE_REV_AUTO nRBC (test code = 0 N nRBC) NRBC Abs (test code = 0.00 x10 N NRBC Abs) IPF (test code = IPF) 0 % N Automated [id number] 14:26:42 Test Item Value Reference Range Interpretation Comments Neutro Auto (test code = Neutro 76.7 % 36.0-70.0 H Auto) Lymph Auto (test code = Lymph Auto) 14.8 % 12.0-44.0 Sarpy Auto (test code = Sarpy Auto) 7.4 % 0.0-11.0 Eos, Auto (test code = Eos, Auto) 0.5 % 0.0-7.0 Basophil Auto (test code = Basophil 0.1 % 0.0-2.0 Auto) Neutro Absolute (test code = Neutro 6.6 x10 1.6-7.4 Absolute) Lymph Absolute (test code = Lymph 1.28 x10 .50-4.60 Absolute) Sarpy Absolute (test code = Sarpy .64 x10 .00-1.20 Absolute) Eos Absolute (test code = Eos 0.04 x10 0.00-0.74 Absolute) Baso Absolute (test code = Baso 0.01 x10 0.00-0.21 Absolute) IG [id number] 14:26:42 Test Item Value Reference Range Interpretation Comments IG (test code = IG) 0.5 % 0.0-5.0 IG Abs (test code = IG Abs) 0 x10 N COMPREHENSIVE METABOLIC [id number] 12:34:00 Test Item Value Reference Range Interpretation Comments TOTAL PROTEIN 6.0 gm/dL 6.0-8.5 (BEAKER) (test code = 770) ALBUMIN (BEAKER) 3.0 g/dL 3.5-5.0 L (test code = 1145) ALKALINE PHOSPHATASE 76 U/L 30-115 (BEAKER) (test code = 346) BILIRUBIN TOTAL 0.3 mg/dL 0.1-1.2 (BEAKER) (test code = 377) SODIUM (BEAKER) (test 137 meq/L 135-148 code = 381) POTASSIUM (BEAKER) 4.2 meq/L 3.6-5.5 (test code = 379) CHLORIDE (BEAKER) 106 meq/L 98-106 (test code = 382) CO2 (BEAKER) (test 24 meq/L 20-29 code = 355) BLOOD UREA NITROGEN 6 mg/dL 10-26 L (BEAKER) (test code = 354) CREATININE (BEAKER) 0.70 mg/dL 0.50-1.20 (test code = 358) GLUCOSE RANDOM 98 mg/dL 70-110 (BEAKER) (test code = 652) CALCIUM (BEAKER) 8.8 mg/dL 8.5-10.5 (test code = 697) AST (SGOT) (BEAKER) 11 U/L 5-40 (test code = 353) ALT (SGPT) (BEAKER) 9 U/L 5-50 (test code = 347) EGFR (BEAKER) (test 125 ESTIMATE D GFR IS code = 1092) mL/min/1.73 sq NOT ACCURA TE m CREATININE CLEARANCE IN PREDICTING GLOMERULAR FILTRATION RATE . ESTIMATED GFR I S NOT APPLICABLE FOR DIALYSIS PATIEN TS. CBC W/PLT COUNT & AUTO [id number] 12:12:00 Test Item Value Reference Range Interpretation Comments WHITE BLOOD CELL COUNT (BEAKER) 7.5 K/ L 4.0-10.0 (test code = 775) RED BLOOD CELL COUNT (BEAKER) 3.70 M/ L 4.00-5.00 L (test code = 761) HEMOGLOBIN (BEAKER) (test code = 9.9 GM/DL 12.0-15.5 L 410) HEMATOCRIT (BEAKER) (test code = 30.7 % 36.0-46.0 L 411) MEAN CORPUSCULAR VOLUME (BEAKER) 83.0 fL 82.0-99.0 (test code = 753) MEAN CORPUSCULAR HEMOGLOBIN 26.8 pg 27.0-33.0 L (BEAKER) (test code = 751) MEAN CORPUSCULAR HEMOGLOBIN CONC 32.2 GM/DL 32.0-36.0 (BEAKER) (test code = 752) RED CELL DISTRIBUTION WIDTH 13.1 % 12.0-15.0 (BEAKER) (test code = 412) PLATELET COUNT (BEAKER) (test 143 K/CU MM 150-430 L code = 756) MEAN PLATELET VOLUME (BEAKER) 11.5 fL 6.0-11.5 (test code = 754) NUCLEATED RED BLOOD CELLS 0 /100 WBC 0-0 (BEAKER) (test code = 413) NEUTROPHILS RELATIVE PERCENT 74 % (BEAKER) (test code = 429) LYMPHOCYTES RELATIVE PERCENT 19 % (BEAKER) (test code = 430) MONOCYTES RELATIVE PERCENT 6 % (BEAKER) (test code = 431) EOSINOPHILS RELATIVE PERCENT 1 % (BEAKER) (test code = 432) BASOPHILS RELATIVE PERCENT 0 % (BEAKER) (test code = 437) NEUTROPHILS ABSOLUTE COUNT 5.49 K/ L 1.80-8.00 (BEAKER) (test code = 670) LYMPHOCYTES ABSOLUTE COUNT 1.43 K/ L 1.48-4.50 L (BEAKER) (test code = 414) MONOCYTES ABSOLUTE COUNT (BEAKER) 0.44 K/ L 0.00-1.30 (test code = 415) EOSINOPHILS ABSOLUTE COUNT 0.04 K/ L 0.00-0.50 (BEAKER) (test code = 416) BASOPHILS ABSOLUTE COUNT (BEAKER) 0.03 K/ L 0.00-0.20 (test code = 417) IMMATURE GRANULOCYTES-RELATIVE 0 % 0-0 PERCENT (BEAKER) (test code = 2801) URINALYSIS W/ REFLEX URINE [id number] 12:04:00 Test Item Value Reference Range Interpretation Comments COLOR (BEAKER) (test code = 470) Yellow CLARITY (BEAKER) (test code = 469) Clear SPECIFIC GRAVITY UA (BEAKER) (test 1.020 1.001-1.035 code = 468) PH UA (BEAKER) (test code = 467) 7.0 5.0-8.0 PROTEIN UA (BEAKER) (test code = Negative Negative 464) GLUCOSE UA (BEAKER) (test code = Negative Negative 365) KETONES UA (BEAKER) (test code = Negative Negative 371) BILIRUBIN UA (BEAKER) (test code = Negative Negative 462) BLOOD UA (BEAKER) (test code = Negative Negative 461) NITRITE UA (BEAKER) (test code = Negative Negative 465) LEUKOCYTE ESTERASE UA (BEAKER) Negative Negative (test code = 466) UROBILINOGEN UA (BEAKER) (test 0.2 mg/dL 0.2-1.0 code = 463) BACTERIA (BEAKER) (test code = Few 517) MUCUS (BEAKER) (test code = 1574) Few RBC UA-MANUAL (BEAKER) (test code <5 /HPF = 1659) WBC UA-MANUAL (BEAKER) (test code <5 /HPF = 1661) SQUAMOUS EPITHELIAL MANUAL 10-20 /HPF (BEAKER) (test code = 1663) SOURCE(BEAKER) (test code = 4825)
[2023-02-08 06:37] LABS: Absolute Lymphocytes (CBC) 2.1 K/uL (0.7-4.9); Hematocrit 31.8 % (36.0-45.0); Lymphocytes % 40.2 % (15.3-44.8); MCV 70.8 fL (80-100); MPV 9.1 fL (7.6-11.3); Platelets 186 thou/uL (152-406); RBC Red Blood Cell Count 4.48 M/uL (3.86-4.86)
[2023-02-08 06:44] LABS: Specific Gravity 1.019 (1.005-1.030); Urine Bacteria None Seen /HPF (<20); Urine Bilirubin NEGATIVE (Negative); Urine Blood Negative (Negative); Urine Clarity Turbid (Clear); Urine Color Light-Yellow (Yellow); Urine Glucose NEGATIVE (Negative); Urine Protein NEGATIVE (Negative); Urine RBC <5 /HPF (None Seen); Urine Urobilinogen Normal (Normal); Urine pH 6.5 (5.0-7.0)
[2023-02-08 06:54] LABS: Albumin 3.7 g/dL (3.4-5.0); Bilirubin Total 0.4 mg/dL (0.2-1.0); Potassium 3.9 mEq/L (3.5-5.1); Protein, Total 7.4 g/dL (6.4-8.2)
[2023-02-08] MEDS ORDERED: FAMOTIDINE 20 MG/2 ML VIAL IV ONE (06:56)
[2023-02-08] MEDS ORDERED: NA CHLORIDE 0.9% 1,000 ML ONE (06:56)
[2023-02-08] MEDS ORDERED: LACTULOSE 20 GM/30 ML UCUP ONE (06:56)
[2023-02-08] MEDS ORDERED: ONDANSETRON 4 MG/2 ML VIAL ONE (06:56)
[2023-02-08 07:19] LABS: Specific Gravity 1.019 (1.005-1.030)
[2023-02-08] MEDS ORDERED: CEFTRIAXONE 1000 MG/VIAL ONE (07:28)
--- NOTE | 2023-02-08 08:18 | RAD REPORT ---
EXAM DESCRIPTION: CT - Abdomen Pelvis W Contrast - 02/08/2023 7:56 am CLINICAL HISTORY: ABD PAIN COMPARISON: No comparisons TECHNIQUE: Thin cut axial CT imaging of the abdomen and pelvis was performed following intravenous a dministration of 95 mL Isovue 300. Multiplanar reformats were generated and reviewed. All CT scans are performed using dose optimization technique as appropriate and may include automated exposure control or mA/KV adjustment according to patient size. FINDINGS: No suspicious findings in the lung bases. The liver, spleen, adrenal glands, and pancreas show no suspicious findings. Gallbladder and biliary tree are also without suspicious finding. Symmetric renal function is seen with no hydronephrosis or suspicious renal mass. No dilated bowel loops or bowel wall thickening. Air-fluid levels within nondistended colon, nonspeci fic and could relate to diarrheal state. Appendix is unremarkable. Moderate hiatal hernia. No free ai r, free fluid or inflammatory stranding. No hernia, mass or bulky lymphadenopathy. The urinary bladde r is without significant finding. No suspicious bony findings. IMPRESSION: Air-fluid levels within nondistended colon, nonspecific and could relate to diarrheal st ate. No other acute intra-abdominal process.
--- NOTE | 2023-02-08 09:14 | ER ---
Nurse's Notes [facility] Name: Ernestine Sandhu Age: 28 yrs Sex: Female : 1995 Arrival Date: 02/08/2023 Time: 05:59 Bed 15 Private MD: Todd Pedersen Diagnosis: Constipation;UTI/ Urinary tract infection, site not specified;Abdominal tenderness;Anemia, unspecified Presentation: 02/08 06:24 Chief complaint: Patient states: LLQ pain of 7, constipation with urinary frequency, pf1 urgency and burning with urination,onset 1.5 weeks. Patient stated LBM was yesterday with hard stool. Coronavirus screen: Vaccine status: Patient reports being unvaccinated. Client denies travel out of the [place] in the last 14 days. At this time, the client does not indicate any symptoms associated with coronavirus-19. Ebola Screen: Patient negative for fever greater than or equal to 101.5 degrees Fahrenheit, and additional compatible Ebola Virus Disease symptoms. Initial Sepsis Screen: Does the patient meet any 2 criteria? No. Patient's initial sepsis screen is negative. Does the patient have a suspected source of infection? No. Patient's initial sepsis screen is negative. Risk Assessment: Do you want to hurt yourself or someone else? Patient reports no desire to harm self or others. 06:24 Method Of Arrival: Ambulatory pf1 06:24 Acuity: ALANA 3 pf1 Historical: - Allergies: 06:26 No Known Allergies; pf1 - PMHx: 06:26 None; pf1 - PSHx: 06:26 facial reconstruction from a softball injury; pf1 - Immunization history:: Adult Immunizations up to date, Client reports having NOT received the Covid vaccine. Last tetanus immunization: > 10 years ago Flu vaccine is not up to date. - Social history:: Smoking status: Patient denies any tobacco usage or history of. Patient/guardian denies using alcohol, street drugs. - Family history:: not pertinent. Screenin:00 [facility] ED Fall Risk Assessment (Adult) History of falling in the last 3 months, kc6 including since admission No falls in past 3 months (0 pts) Confusion or Disorientation No (0 pts) Intoxicated or Sedated No (0 pts) Impaired Gait No (0 pts) Mobility Assist Device Used No (0 pt) Altered Elimination No (0 pt) Score/Fall Risk Level 0 - 2 = Low Risk. Abuse screen: Denies threats or abuse. Denies injuries from another. Nutritional screening: No deficits noted. Tuberculosis screening: No symptoms or risk factors identified. Assessment: 06:18 General: Appears uncomfortable, Behavior is calm, cooperative. Pain: Complains of pain ha1 in burning with urination Pain does not radiate. Pain currently is 8 out of 10 on a pain scale. Quality of pain is described as burning. Neuro: Level of Consciousness is awake, alert, obeys commands, Oriented to person, place, time, situation. Cardiovascular: Patient's skin is warm and dry. Respiratory: Airway is patent Respiratory effort is even, unlabored, Respiratory pattern is regular, symmetrical. GI: Abdomen is round non-distended, Bowel sounds present X 4 quads. Abd is soft and non tender X 4 quads. : Urine is cloudy, Reports burning with urination, urgency. Musculoskeletal: Circulation, motion, and sensation intact. Range of motion: intact in all extremities. 07:00 Reassessment: Patient appears in no apparent distress at this time. Patient and/or kc6 family updated on plan of care and expected duration. Pain level reassessed. Patient is alert, oriented x 3, equal unlabored respirations, skin warm/dry/pink. 08:00 Reassessment: Patient appears in no apparent distress at this time. No changes from [facility] previously documented assessment. Patient and/or family updated on plan of care and expected duration. Pain level reassessed. Patient is alert, oriented x 3, equal unlabored respirations, skin warm/dry/pink. 09:01 Reassessment: Patient appears in no apparent distress at this time. No changes from [facility] previously documented assessment. Patient and/or family updated on plan of care and expected duration. Pain level reassessed. Patient is alert, oriented x 3, equal unlabored respirations, skin warm/dry/pink. Vital Signs: 06:24 BP 129 / 76; Pulse 66; Resp 16; Temp 97.9; Pulse Ox 100% on R/A; Weight 102.51 kg; pf1 Height 5 ft. 7 in. ; Pain 7/10; 07:00 BP 114 / 58; Pulse 60; Resp 15 S; Pulse Ox 100% on R/A; ha1 08:19 BP 129 / 76; Pulse 55; Resp 18 S; Pulse Ox 100% on R/A; kc6 09:01 BP 117 / 69; Pulse 58; Resp 16 S; Pulse Ox 100% on R/A; kc6 06:24 Body Mass Index 35.40 (102.51 kg, 170.18 cm) pf1 06:24 Pain Scale: Adult pf1 ED Course: 06:03 Patient arrived in ED. mr 06:03 Todd Pedersen MD is Private Physician. mr 06:07 Hunter Connolly MD is Attending Physician. joel 06:25 Inserted saline lock: 20 gauge in right antecubital area, using aseptic technique. ha1 Blood collected. 06:26 Triage completed. pf1 06:59 Blanca Fry RN is Primary Nurse. ha1 07:00 Patient has correct armband on for positive identification. Bed in low position. Call kc6 light in reach. Side rails up X 1. Report received from Blanca Fry RN. 07:20 PREGU Sent. kc6 07:57 CT Abd/Pelvis - PO and IV Contrast In Process Unspecified. EDMS 08:05 Attending Physician role handed off by Hunter Connolly MD kdr 08:05 Axel Vora MD is Attending Physician. kdr 09:14 Todd Pedersen MD is Referral Physician. kdr 09:26 No provider procedures requiring assistance completed. IV discontinued, intact, kc6 bleeding controlled, No redness/swelling at site. Pressure dressing applied. Administered Medications: 06:50 Drug: NS 0.9% IV 1000 ml Route: IV; Rate: 1 bolus; Site: right antecubital; ha1 08:37 Follow up: Response: No adverse reaction; IV Status: Completed infusion; IV Intake: kc6 1000ml 06:50 Drug: Lactulose PO 30 grams Volume: 45 ml; Route: PO; ha1 07:57 Follow up: Response: No adverse reaction kc6 06:52 Drug: Famotidine IVP 20 mg Route: IVP; Site: right antecubital; ha1 07:57 Follow up: Response: No adverse reaction kc6 06:55 Drug: Ondansetron IVP 4 mg Route: IVP; Site: right antecubital; ha1 07:57 Follow up: Response: No adverse reaction; Nausea is decreased; Vomiting decreased kc6 07:10 Not Given (Patient Refused): Dulcolax CA Suppository 10 mg CA once ha1 07:21 Drug: Rocephin IV 1 grams Route: IV; Rate: per protocol; Site: right antecubital; kc6 07:58 Follow up: Response: No adverse reaction; IV Status: Completed infusion; IV Intake: [id number] Medication: 09:26 VIS not applicable for this client. kc6 Intake: 07:58 IV: 50ml; Total: 50ml. kc6 08:37 IV: 1000ml; Total: 1050ml. kc6 Outcome: 09:14 Discharge ordered by . kdr 09:26 Discharged to home ambulatory. kc6 09:26 Condition: improved 09:26 Discharge instructions given to patient, Instructed on discharge instructions, follow up and referral plans. medication usage, Demonstrated understanding of instructions, follow-up care, medications, Prescriptions given X 2. 09:26 Patient left the ED. kc6 Signatures: Dispatcher [employer] EDMS Hunter Connolly MD MD cha Rittger, Kevin, MD MD kdr Rivera, Mary mr Blanca Fry, RN RN ha1 Nataly Hernandes RN RN kc6 Cara Shepherd RN RN pf1
--- NOTE | 2023-02-08 09:15 | EDPHYS ---
Physician Documentation [facility] Name: Ernestine Sandhu Age: 28 yrs Sex: Female : 1995 Arrival Date: 02/08/2023 Time: 05:59 Bed 15 Private MD: Todd Pedersen ED Physician Axel Vora HPI: 02/08 06:55 This 28 yrs old Black Female presents to ER via Ambulatory with complaints of Urinary joel Problem, Abdominal Pain, Constipation. 06:55 The patient presents with abdominal pain in the left lower quadrant. Onset: The joel symptoms/episode began/occurred yesterday. The patient presents with urinary symptoms, dysuria, frequency, hematuria. Onset: The symptoms/episode began/occurred 1 day(s) ago. Modifying factors: The symptoms are alleviated by nothing, the symptoms are aggravated by nothing. Associated signs and symptoms: The patient has no apparent associated signs or symptoms. Severity of symptoms: At their worst the symptoms were mild, in the emergency department the symptoms are unchanged. The patient is not sexually active. Historical: - Allergies: 06:26 No Known Allergies; pf1 - PMHx: 06:26 None; pf1 - PSHx: 06:26 facial reconstruction from a softball injury; pf1 - Immunization history:: Adult Immunizations up to date, Client reports having NOT received the Covid vaccine. Last tetanus immunization: > 10 years ago Flu vaccine is not up to date. - Social history:: Smoking status: Patient denies any tobacco usage or history of. Patient/guardian denies using alcohol, street drugs. - Family history:: not pertinent. ROS: 06:55 Constitutional: Negative for fever, chills, and weight loss, Eyes: Negative for injury, joel pain, redness, and discharge, ENT: Negative for injury, pain, and discharge, Neck: Negative for injury, pain, and swelling, Cardiovascular: Negative for chest pain, palpitations, and edema, Respiratory: Negative for shortness of breath, cough, wheezing, and pleuritic chest pain, Back: Negative for injury and pain, : Negative for injury, bleeding, discharge, and swelling, MS/Extremity: Negative for injury and deformity, Skin: Negative for injury, rash, and discoloration, Neuro: Negative for headache, weakness, numbness, tingling, and seizure, Psych: Negative for depression, anxiety, suicide ideation, homicidal ideation, and hallucinations, Allergy/Immunology: Negative for hives, rash, and allergies, Endocrine: Negative for neck swelling, polydipsia, polyuria, polyphagia, and marked weight changes, Hematologic/Lymphatic: Negative for swollen nodes, abnormal bleeding, and unusual bruising. 06:55 Abdomen/GI: Positive for abdominal pain, of the left lower quadrant. Exam: 06:55 Constitutional: This is a well developed, well nourished patient who is awake, alert, joel and in no acute distress. Head/Face: Normocephalic, atraumatic. Eyes: Pupils equal round and reactive to light, extra-ocular motions intact. Lids and lashes normal. Conjunctiva and sclera are non-icteric and not injected. Cornea within normal limits. Periorbital areas with no swelling, redness, or edema. ENT: Nares patent. No nasal discharge, no septal abnormalities noted. Tympanic membranes are normal and external auditory canals are clear. Oropharynx with no redness, swelling, or masses, exudates, or evidence of obstruction, uvula midline. Mucous membranes moist. Neck: Trachea midline, no thyromegaly or masses palpated, and no cervical lymphadenopathy. Supple, full range of motion without nuchal rigidity, or vertebral point tenderness. No Meningismus. Chest/axilla: Normal chest wall appearance and motion. Nontender with no deformity. No lesions are appreciated. Cardiovascular: Regular rate and rhythm with a normal S1 and S2. No gallops, murmurs, or rubs. Normal PMI, no JVD. No pulse deficits. Respiratory: Lungs have equal breath sounds bilaterally, clear to auscultation and percussion. No rales, rhonchi or wheezes noted. No increased work of breathing, no retractions or nasal flaring. Back: No spinal tenderness. No costovertebral tenderness. Full range of motion. Skin: Warm, dry with normal turgor. Normal color with no rashes, no lesions, and no evidence of cellulitis. MS/ Extremity: Pulses equal, no cyanosis. Neurovascular intact. Full, normal range of motion. Neuro: Awake and alert, GCS 15, oriented to person, place, time, and situation. Cranial nerves II-XII grossly intact. Motor strength 5/5 in all extremities. Sensory grossly intact. Cerebellar exam normal. Normal gait. Psych: Awake, alert, with orientation to person, place and time. Behavior, mood, and affect are within normal limits. 06:55 Abdomen/GI: Inspection: abdomen appears normal, Bowel sounds: normal, Palpation: mild abdominal tenderness, in the left lower quadrant, Liver: no appreciated palpable abnormalities, Hernia: not appreciated. Vital Signs: 06:24 BP 129 / 76; Pulse 66; Resp 16; Temp 97.9; Pulse Ox 100% on R/A; Weight 102.51 kg; pf1 Height 5 ft. 7 in. ; Pain 7/10; 07:00 BP 114 / 58; Pulse 60; Resp 15 S; Pulse Ox 100% on R/A; ha1 08:19 BP 129 / 76; Pulse 55; Resp 18 S; Pulse Ox 100% on R/A; kc6 09:01 BP 117 / 69; Pulse 58; Resp 16 S; Pulse Ox 100% on R/A; kc6 06:24 Body Mass Index 35.40 (102.51 kg, 170.18 cm) pf1 06:24 Pain Scale: Adult pf1 MDM: 06:20 Patient medically screened. joel 06:58 Differential diagnosis: bowel obstruction, diverticulitis, non-specific abd pain. Data joel reviewed: vital signs, nurses notes, lab test result(s), radiologic studies. Consideration of Admission/Observation Escalation of care including admission/observation considered. I considered the following discharge prescriptions or medication management in the emergency department Medications were administered in the Emergency Department. See MAR. Independent interpretation of the following test(s) in the Emergency Department CT Scan: My interpretation is CT ABD AND PELVIS. Test considered but Not performed: Ultrasound NO ABD USG. Historians other than the Patient: NONE , PT INFORMED. Care significantly affected by the following chronic conditions: NONE. Counseling: I had a detailed discussion with the patient and/or guardian regarding the historical points, exam findings, and any diagnostic results supporting the discharge/admit diagnosis, lab results, radiology results, the need for outpatient follow up, for definitive care, a family practitioner. 02/08 06:12 Order name: CBC with Diff; Complete Time: 06:46 [facility] 02/08 06:12 Order name: CMP; Complete Time: 07:27 [facility] 02/08 06:12 Order name: Lipase; Complete Time: 07:27 [facility] 02/08 06:12 Order name: Urinalysis w/ reflexes; Complete Time: 07:27 joel 02/08 07:14 Order name: PREGU; Complete Time: 07:27 pf1 02/08 06:12 Order name: CT Abd/Pelvis - PO and IV Contrast; Complete Time: 08:35 joel 02/08 06:12 Order name: IV Saline Lock; Complete Time: 06:37 joel 02/08 06:12 Order name: Labs collected and sent; Complete Time: 06:37 [facility] Administered Medications: 06:50 Drug: NS 0.9% IV 1000 ml Route: IV; Rate: 1 bolus; Site: right antecubital; ha1 08:37 Follow up: Response: No adverse reaction; IV Status: Completed infusion; IV Intake: kc6 1000ml 06:50 Drug: Lactulose PO 30 grams Volume: 45 ml; Route: PO; ha1 07:57 Follow up: Response: No adverse reaction kc6 06:52 Drug: Famotidine IVP 20 mg Route: IVP; Site: right antecubital; ha1 07:57 Follow up: Response: No adverse reaction kc6 06:55 Drug: Ondansetron IVP 4 mg Route: IVP; Site: right antecubital; ha1 07:57 Follow up: Response: No adverse reaction; Nausea is decreased; Vomiting decreased kc6 07:10 Not Given (Patient Refused): Dulcolax [place] Suppository 10 mg NJ once ha1 07:21 Drug: Rocephin IV 1 grams Route: IV; Rate: per protocol; Site: right antecubital; kc6 07:58 Follow up: Response: No adverse reaction; IV Status: Completed infusion; IV Intake: [id number] Disposition Summary: 02/08/23 09:14 Discharge Ordered Location: Home kdr Problem: new kdr Symptoms: have improved kdr Condition: Stable kdr Diagnosis - Constipation kdr - UTI/ Urinary tract infection, site not specified kdr - Abdominal tenderness kdr - Anemia, unspecified kdr Followup: joel - With: - When: 2 - 3 days - Reason: Recheck today's complaints, Continuance of care, Re-evaluation by your physician Discharge Instructions: - Discharge Summary Sheet joel - Abdominal Pain, Adult joel - Anemia joel - Dysuria joel - Urinary Tract Infection, Adult joel - Urinary Tract Infection, Adult, [id number] joel - Abdominal Pain, Adult, [id number] [facility] Forms: - Medication Reconciliation Form kdr - Thank You Letter kdr - Antibiotic Education kdr - Prescription Opioid Use kdr - Patient Portal Instructions kdr - Leadership Thank You Letter kdr Prescriptions: - Lactulose 10 gram/15 mL Oral Solution - take 30 milliliters by ORAL route once daily; 200 milliliter; Refills: 0, [facility] Product Selection Permitted - Cipro 500 mg Oral Tablet - take 1 tablet by ORAL route every 12 hours for 7 days; 14 tablet; Refills: 0, [facility] Product Selection Permitted Signatures: Dispatcher [employer] EDHunter Engel MD MD cha Rittger, Kevin, MD MD kdr Ayala, Heidy RN RN ha1 Nataly Hernandes RN RN kc6 Cara Shepherd RN RN pf1
[2023-02-08 09:35] VITALS: TEMP 97.9; O2SAT 100
[2023-02-08 09:42] VITALS: BP 117/69
== END 2023-02-08 09:26 | disposition home or self-care (01) ==
LOC: ER 05:59
DX: N39.0 Urinary tract infection, site not specified (principal); K59.00 Constipation, unspecified; D64.9 Anemia, unspecified
CPT/HCPCS: 96365; 96361; 85025; 81001; 36415; 81025; 83690; 80053; 74177; 96375; 99284; Q9967; J2405; J7030; J0696

== ENCOUNTER 2025-01-29 19:37 | Emergency (ER) | payer OTHER ==
[2025-01-29 20:20] LABS: Urine Culture Reflex Order NOT NEEDED; Urine Microscopic Reflex YN ORDER UMIC; Urine Yeast (Budding) Trace /HPF (None Seen)
--- NOTE | 2025-01-29 20:55 | ER ---
Nurse's Notes [facility] Name: Ernestine Sandhu Age: 30 yrs Sex: Female : 1995 Arrival Date: 01/29/2025 Time: 19:37 Bed 11 Private MD: Diagnosis: Candidiasis of vulva and vagina;Bacterial vaginosis Presentation: 01/29 19:44 Chief complaint: Patient states: pelvic pain that started today and burning with cp4 urination began 2 days ago. Coronavirus screen: Vaccine status: Patient reports being unvaccinated. Client denies travel out of the [place] in the last 14 days. At this time, the client does not indicate any symptoms associated with coronavirus-19. Ebola Screen: Patient negative for fever greater than or equal to 101.5 degrees Fahrenheit, and additional compatible Ebola Virus Disease symptoms No symptoms or risks identified at this time. Initial Sepsis Screen: Does the patient meet any 2 criteria? No. Patient's initial sepsis screen is negative. Does the patient have a suspected source of infection? No. Patient's initial sepsis screen is negative. Risk Assessment: Do you want to hurt yourself or someone else? Patient reports no desire to harm self or others. Onset of symptoms was January 27, 2025. 19:44 Method Of Arrival: Ambulatory cp4 19:44 Acuity: ALANA 3 cp4 Triage Assessment: 19:45 General: Appears in no apparent distress. uncomfortable, Behavior is calm, cooperative, cp4 appropriate for age. Pain: Complains of pain in pelvis Pain does not radiate. Pain currently is 6 out of 10 on a pain scale. 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 - Infectious Disease History:: Denies. - Social history:: Smoking status: Patient denies any tobacco usage or history of. Screenin:14 [facility] ED Fall Risk Assessment (Adult) History of falling in the last 3 months, cp4 including since admission No falls in past 3 months (0 pts) Confusion or Disorientation No (0 pts) Intoxicated or Sedated No (0 pts) Impaired Gait No (0 pts) Mobility Assist Device Used No (0 pt) Altered Elimination No (0 pt) Score/Fall Risk Level 0 - 2 = Low Risk Oriented to surroundings, Maintained a safe environment, Assessed \T\ reinforced patient's understanding of fall precautions, Hourly rounding (assess needs \T\ fall precautionary measures) done. Abuse screen: Denies threats or abuse. Denies injuries from another. Nutritional screening: No deficits noted. Tuberculosis screening: No symptoms or risk factors identified. Never had TB. Assessment: 21:14 General: Appears in no apparent distress. uncomfortable, Behavior is calm, cooperative, cp4 appropriate for age. Pain: Complains of pain in pelvis Pain does not radiate. Pain currently is 6 out of 10 on a pain scale. Neuro: Level of Consciousness is awake, alert, obeys commands, Oriented to person, place, time, situation. Cardiovascular: Patient's skin is warm and dry. Respiratory: Airway is patent Respiratory effort is even, unlabored. GI: No signs and/or symptoms were reported involving the gastrointestinal system. : Reports burning with urination. EENT: No signs and/or symptoms were reported regarding the EENT system. Derm: No signs and/or symptoms reported regarding the dermatologic system. Musculoskeletal: No signs and/or symptoms reported regarding the musculoskeletal system. Vital Signs: 19:44 BP 142 / 97; Pulse 71; Resp 18; Temp 97.2; Pulse Ox 97% ; Weight 102.51 kg; Height 5 cp4 ft. 5 in. ; Pain 6/10; 19:44 Body Mass Index 37.61 (102.51 kg, 165.1 cm) cp4 19:44 Pain Scale: Adult cp4 ED Course: 19:40 Patient arrived in ED. gm2 19:43 [facility] kb 19:43 Hunter Connolly MD is Attending Physician. kb 19:45 Triage completed. cp4 19:45 Arm band placed on right wrist. Patient placed in waiting room. cp4 21:14 Bed in low position. Call light in reach. Side rails up X 1. Provided Education on: uti.cp4 21:14 No provider procedures requiring assistance completed. Patient did not have IV access cp4 during this emergency room visit. Administered Medications: 21:21 Drug: Fluconazole PO 150 mg PO once Route: PO; cp4 21:22 Follow up: Response: No adverse reaction cp4 21:21 Drug: metroNIDAZOLE PO 500 mg PO once Route: PO; cp4 21:21 Follow up: Response: No adverse reaction cp4 Medication: 21:14 VIS not applicable for this client. cp4 Outcome: 20:54 Discharge ordered by . carmita 21:22 Discharged to home ambulatory, cp4 :22 Condition: stable :22 Discharge instructions given to patient, Instructed on discharge instructions, follow up and referral plans. medication usage, Demonstrated understanding of instructions, follow-up care, medications, Prescriptions given X 2, 21:22 Patient left the ED. cp4 Signatures: Jovanna Frazier, NORBERT JACK-Pamela Phoenix cp4 Marianne Hernandez [facility]
--- NOTE | 2025-01-29 20:55 | EDPHYS ---
Physician Documentation [facility] Name: Ernestine Sandhu Age: 30 yrs Sex: Female : 1995 Arrival Date: 01/29/2025 Time: 19:37 Bed 11 Private MD: ED Physician Hunter Connolly HPI: 01/29 21:10 This 30 yrs old Black Female presents to ER via Ambulatory with complaints of Pelvic kb Pain, Pain With Urination. 21:10 Pt is a 30 year old female who presents for dysuria that started 2 days ago with pelvic kb pain and white vaginal discharge that started today. denies fever, n/v/d. . 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 - Infectious Disease History:: Denies. - Social history:: Smoking status: Patient denies any tobacco usage or history of. ROS: 21:10 Constitutional: As per HPI kb Exam: 21:10 Constitutional: This is a well developed, well nourished patient who is awake, alert, kb and in no acute distress. Head/Face: Normocephalic, atraumatic. ENT: Moist Mucous membranes Cardiovascular: Regular rate Respiratory: Respirations even and unlabored. No increased work of breathing. Talking in full sentences Skin: Warm, dry with normal turgor. Normal color. MS/ Extremity: Pulses equal, no cyanosis. Neurovascular intact. Full, normal range of motion. Neuro: Awake and alert, GCS 15, oriented to person, place, time, and situation. 21:10 Abdomen/GI: Inspection: abdomen appears normal, Bowel sounds: normal, Palpation: soft, in all quadrants, mild abdominal tenderness, in the suprapubic area, right lower quadrant and left lower quadrant, Vital Signs: 19:44 BP 142 / 97; Pulse 71; Resp 18; Temp 97.2; Pulse Ox 97% ; Weight 102.51 kg; Height 5 cp4 ft. 5 in. ; Pain 6/10; 19:44 Body Mass Index 37.61 (102.51 kg, 165.1 cm) cp4 19:44 Pain Scale: Adult cp4 MDM: 19:43 Medical Screening Exam initiated kb 21:11 Differential diagnosis: UTI, STI, PID, candidiasis. Data reviewed: vital signs, nurses kb notes. Counseling: I had a detailed discussion with the patient and/or guardian regarding the historical points, exam findings, and any diagnostic results supporting the discharge/admit diagnosis, lab results, the need for outpatient follow up, an OB/Gyne specialist, to return to the emergency department if symptoms worsen or persist or if there are any questions or concerns that arise at home. 01/29 19:44 Order name: UA Rfx Levon Cult if indicated; Complete Time: 20:22 kb 01/29 19:44 Order name: Test, Urine; Complete Time: 20:22 kb 01/29 19:49 Order name: Wet Prep; Complete Time: 20:36 kb 01/29 19:49 Order name: GC (Darren/Chl) Probe VAGINAL (Do not order if pt is under 13, order Culture kb instead) Administered Medications: 21:21 Drug: Fluconazole PO 150 mg PO once Route: PO; cp4 21:22 Follow up: Response: No adverse reaction cp4 21:21 Drug: metroNIDAZOLE PO 500 mg PO once Route: PO; cp4 21:21 Follow up: Response: No adverse reaction cp4 Disposition Summary: 01/29/25 20:54 Discharge Ordered Notes: Location: Home kb Condition: Stable kb Diagnosis - Candidiasis of vulva and vagina kb - Bacterial vaginosis kb Followup: kb - With: Emergency Department - When: As needed - Reason: Worsening of condition Followup: kb - With: Private Physician - When: 2 - 3 days - Reason: Recheck today's complaints, Continuance of care, Re-evaluation by your physician Discharge Instructions: - Discharge Summary Sheet kb - Vaginal Yeast Infection, Adult kb - Bacterial Vaginosis, [id number] kb Forms: - Medication Reconciliation Form kb - Antibiotic Education kb - Prescription Opioid Use kb - Patient Portal Instructions kb - Leadership Thank You Letter kb Prescriptions: - Flagyl 500 mg Oral Tablet - take 1 tablet ORAL route every 12 hours for 7 days; 14 tablet; Refills: 0, kb Product Selection Permitted - Fluconazole 150 mg Oral tablet - take 1 tablet ORAL route one time; 1 tablet; Refills: 0, Product Selection kb Permitted Signatures: Dispatcher [employer] Jovanna Storey FNP-C FNP-Ckb Pamela Butler cp4
[2025-01-29] MEDS ORDERED: FLUCONAZOLE 100 MG TAB ONE (21:15)
[2025-01-29 21:34] VITALS: BP 142/97; TEMP 97.2; O2SAT 97
== END 2025-01-29 21:22 | disposition home or self-care (01) ==
LOC: ER 19:37
DX: B37.31 Acute candidiasis of vulva and vagina (principal); N76.0 Acute vaginitis
CPT/HCPCS: 81001; 81025; 87210; 87490; 87590; 99283

== ENCOUNTER 2025-04-04 16:21 | Emergency (ER) | payer OTHER ==
[2025-04-04 16:49] LABS: Sqamous Epithelial <5 /HPF (None Seen); Urine Crystals Unidentified Few /HPF (None Seen); Urine Culture Reflex Order NOT NEEDED; Urine Microscopic Reflex YN ORDER UMIC
--- NOTE | 2025-04-04 17:07 | ER ---
Nurse's Notes [facility] Name: Ernestine Sandhu Age: 30 yrs Sex: Female : 1995 Arrival Date: 04/04/2025 Time: 16:21 Bed 12 Private MD: Diagnosis: Abrasion of vagina and vulva Presentation: 04/04 16:28 Chief complaint: Patient states: dysuria and pain when wiping for 2-3 days. Coronavirus me1 screen: Vaccine status: Patient reports being unvaccinated. Ebola Screen: No symptoms or risks identified at this time. Initial Sepsis Screen: Does the patient meet any 2 criteria? No. Patient's initial sepsis screen is negative. Does the patient have a suspected source of infection? No. Patient's initial sepsis screen is negative. Risk Assessment: Do you want to hurt yourself or someone else? Patient reports no desire to harm self or others. 16:28 Method Of Arrival: Ambulatory [facility] 16:29 Onset of symptoms was April 01, 2025. 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 - Infectious Disease History:: Denies. - Social history:: Smoking status: Patient denies any tobacco usage or history of. Screenin:18 [facility] ED Fall Risk Assessment (Adult) History of falling in the last 3 months, jb4 including since admission No falls in past 3 months (0 pts) Confusion or Disorientation No (0 pts) Intoxicated or Sedated No (0 pts) Impaired Gait No (0 pts) Mobility Assist Device Used No (0 pt) Altered Elimination No (0 pt) Score/Fall Risk Level 0 - 2 = Low Risk Oriented to surroundings, Maintained a safe environment. Abuse screen: Denies threats or abuse. Nutritional screening: No deficits noted. Tuberculosis screening: No symptoms or risk factors identified. Assessment: 17:18 General: Appears in no apparent distress. comfortable, Behavior is calm, cooperative, jb4 appropriate for age. Pain: Complains of pain in groin Pain does not radiate. Pain currently is 5 out of 10 on a pain scale. Neuro: Level of Consciousness is awake, alert, obeys commands, Oriented to person, place, time, situation. Cardiovascular: Patient's skin is warm and dry. Respiratory: Airway is patent Respiratory effort is even, unlabored, Respiratory pattern is regular, symmetrical. Derm: Skin is intact, Skin is pink, warm \T\ dry. Musculoskeletal: Circulation, motion, and sensation intact. Range of motion: intact in all extremities. Vital Signs: 16:28 BP 140 / 90; Pulse 76; Resp 16; Temp 98.3; Pulse Ox 99% ; Weight 96.62 kg; Height 5 ft. me1 5 in. ; Pain 5/10; 16:28 Body Mass Index 35.44 (96.62 kg, 165.1 cm) nd1 16:28 Pain Scale: Adult [facility] ED Course: 16:25 Patient arrived in ED. 3 16:26 Jovanna Frazier FNP-C is [facility]. kb 16:26 Isaac Price MD is Attending Physician. kb 16:29 Triage completed. me1 16:30 Arm band placed on Patient placed in waiting room. me1 16:31 Jacek Issa, JOSE is Primary Nurse. rg5 16:40 Test, Urine Sent. me1 16:40 UA Rfx Levon Cult if indicated Sent. me1 16:40 Urine collected: clean catch specimen, clear. me1 17:18 Patient has correct armband on for positive identification. Bed in low position. Call jb4 light in reach. Side rails up X 1. Provided Education on: plan of care. 17:18 No provider procedures requiring assistance completed. Patient did not have IV access jb4 during this emergency room visit. Administered Medications: No medications were administered Medication: 17:18 VIS not applicable for this client. jb4 Outcome: 17:07 Discharge ordered by . kb 17:18 Discharged to home ambulatory, jb4 17:18 Condition: stable 17:18 Discharge instructions given to patient, Instructed on discharge instructions, follow up and referral plans. 17:20 Patient left the ED. jb4 Signatures: Jovanna Frazier FNP-C FNP-Ckb Bryson, James, RN RN jb4 Lisandra Gage RN RN nd1 Jacek Issa, RN RN rg5 Noemi De La Rosa cj3 Corrections: (The following items were deleted from the chart) 16:30 16:28 Acuity: ALANA 3 me1 me1
--- NOTE | 2025-04-04 17:07 | EDPHYS ---
Physician Documentation [facility] Name: Ernestine Sandhu Age: 30 yrs Sex: Female : 1995 Arrival Date: 04/04/2025 Time: 16:21 Bed 12 Private MD: ED Physician Isaac Price HPI: 04/04 16:26 This 30 yrs old Black Female presents to ER via Unassigned with complaints of Pain With kb Urination, Vaginal Pain. 16:26 Pt is a 30 year old female who presents for dysuria that started 2-3 days ago with pain kb to vaginal area when wiping. STates it feels like she has a cut. Denies fever, abd pain. 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 - Infectious Disease History:: Denies. - Social history:: Smoking status: Patient denies any tobacco usage or history of. ROS: 16:27 Constitutional: As per HPI kb Exam: 17:19 Constitutional: This is a well developed, well nourished patient who is awake, alert, kb and in no acute distress. Head/Face: Normocephalic, atraumatic. ENT: Moist Mucous membranes Cardiovascular: Regular rate Respiratory: Respirations even and unlabored. No increased work of breathing. Talking in full sentences Skin: Warm, dry with normal turgor. Normal color. MS/ Extremity: Pulses equal, no cyanosis. Neurovascular intact. Full, normal range of motion. Neuro: Awake and alert, GCS 15, oriented to person, place, time, and situation. 17:19 : Pelvic Exam: External exam: 2 abrasions to vaginal area, Vital Signs: 16:28 BP 140 / 90; Pulse 76; Resp 16; Temp 98.3; Pulse Ox 99% ; Weight 96.62 kg; Height 5 ft. me1 5 in. ; Pain 5/10; 16:28 Body Mass Index 35.44 (96.62 kg, 165.1 cm) me1 16:28 Pain Scale: Adult me1 MDM: 16:26 Medical Screening Exam initiated kb 16:27 Data reviewed: vital signs, nurses notes. kb 04/04 16:26 Order name: UA Rfx Levon Cult if indicated; Complete Time: 16:50 kb 04/04 16:26 Order name: Test, Urine; Complete Time: 16:50 kb 04/04 16:29 Order name: Misc. Order: place pt in gown please; Complete Time: 16:40 kb Administered Medications: No medications were administered Disposition: 18:23 Co-signature as Attending Physician, Isaac Price MD I reviewed the patient's care rn provided by the Advanced Practice Provider and agree with the diagnosis and treatment plan. Disposition Summary: 04/04/25 17:07 Discharge Ordered Notes: Location: Home kb Condition: Stable kb Diagnosis - Abrasion of vagina and vulva kb Followup: kb - With: Emergency Department - When: As needed - Reason: Worsening of condition Followup: kb - With: Private Physician - When: 2 - 3 days - Reason: Recheck today's complaints, Continuance of care, Re-evaluation by your physician Discharge Instructions: - Discharge Summary Sheet kb - How to Take a Sitz Bath kb - Vaginal Laceration kb Forms: - Medication Reconciliation Form kb - Antibiotic Education kb - Prescription Opioid Use kb - Patient Portal Instructions kb - Leadership Thank You Letter kb Signatures: Dispatcher [employer] Jovanna Storey, GUERO-C CARTRIDGE FEEDER-Isaac Zarate MD MD rn Eddleman, Michelle, RN RN me1
[2025-04-05 00:13] VITALS: BP 140/90; TEMP 98.3; O2SAT 99
== END 2025-04-04 17:20 | disposition home or self-care (01) ==
LOC: ER 16:21
DX: S30.814A Abrasion of vagina and vulva, initial encounter (principal); X58.XXXA Exposure to other specified factors, initial encounter
CPT/HCPCS: 81001; 81025; 99283